=== PATIENT | female | born 1990 | race Caucasian/White ===

== ENCOUNTER 2017-01-13 16:14 | Outpatient (CLI) | payer MEDICAID ==
[2017-01-13 17:21] LABS: APPEARANCE,URINE SLIGHTLY-CLOUDY; BILIRUBIN,URINE NEGATIVE (NEGATIVE); GLUCOSE, URINE NEGATIVE (NEGATIVE); KETONES,URINE NEGATIVE (NEGATIVE); LEUKOCYTE ESTERASE,URINE MODERATE (NEGATIVE); NITRITE,URINE NEGATIVE (NEGATIVE); PROTEIN,URINE NEGATIVE (NEGATIVE); URINE SPECIFIC GRAVITY 1.013; UROBILINOGEN,URINE NEGATIVE mg/dL (<2.0)
[2017-01-13 17:21] LABS: ABSOLUTE BASOPHILS # (AUTO) 0.1 10^3/uL (0.0-0.2); ABSOLUTE EOSINOPHILS # (AUTO) 0.1 10^3/uL (0.0-0.6); ABSOLUTE LYMPHOCYTES (AUTO) 1.8 10^3/uL (0.5-4.7); ABSOLUTE MONOCYTES (AUTO) 0.8 10^3/uL (0.1-1.4); BASOPHILS % (AUTO) 0.8 % (0-2); EOSINOPHILS % (AUTO) 0.8 % (0-6); HEMATOCRIT 33.3 % (36.0-47.0); HEMOGLOBIN 11.4 g/dL (12.0-15.5); HGB HCT DIFFERENCE 0.9; LYMPHOCYTES % (AUTO) 16.5 % (13-45); MEAN CORPUSCULAR HEMOGLOBIN 30.2 pg (27.0-33.4); MEAN CORPUSCULAR HGB CONC 34.3 g/dL (32.0-36.0); MEAN CORPUSCULAR VOLUME 88 fl (80-97); MONOCYTES % (AUTO) 7.6 % (3-13); RED BLOOD COUNT 3.79 10^6/uL (3.72-5.28); RED CELL DISTRIBUTION WIDTH 12.9 % (11.5-14.0); SEGMENTED NEUTROPHILS % (AUTO) 74.3 % (42-78); WHITE BLOOD COUNT 10.8 10^3/uL (4.0-10.5)
[2017-01-13 17:38] LABS: URINE BARBITURATES SCREEN NEGATIVE; URINE METHADONE SCREEN NEGATIVE; URINE OPIATES LOW NEGATIVE; URINE PHENCYCLIDINE SCREEN NEGATIVE
[2017-01-13 17:40] LABS: ALANINE AMINOTRANSFERASE 19 U/L (9-52); ALBUMIN 3.9 g/dL (3.5-5.0); ALKALINE PHOSPHATASE 188 U/L (38-126); ANION GAP 12 (5-19); ASPARTATE AMINO TRANSFERASE 17 U/L (14-36); BILIRUBIN,TOTAL 0.4 mg/dL (0.2-1.3); BLOOD UREA NITROGEN 9 mg/dL (7-20); CALCIUM 9.8 mg/dL (8.4-10.2); CARBON DIOXIDE 19 mmol/L (22-30); CHLORIDE 106 mmol/L (98-107); CREATININE RESULT 0.51 mg/dL (0.52-1.25); GLUCOSE 75 mg/dL (75-110); LDH 409 U/L (313-618); POTASSIUM 4.1 mmol/L (3.6-5.0); SODIUM 136.5 mmol/L (137-145); TOTAL PROTEIN 6.9 g/dL (6.3-8.2); URIC ACID 3.8 mg/dL (2.5-6.2)
--- NOTE | 2017-01-13 18:01 | L&D Flow Sheet ---
LD Flowsheet Datetime Report Generated by CPN: 01/13/2017 18:00 Datetime: 01/13/2017 17:52 Comments: Monitors removed from abdomen, pt up to change clothes for D/C home with f/u at next appointment. (Nayely Alston, RNC) Datetime: 01/13/2017 17:40 NBP Sys/Holli/Mean (mmHg): 130 (QS system process) : 80 (QS system process) : 99 (QS system process) Pulse: 76 (QS system process) LaborFlag: Labor (QS system process) Datetime: 01/13/2017 17:30 Monitor Mode: External; Palpation (Nayely Gamaliel, RNC) Frequency (min): 3-5 (Nayely Gamaliel, RNC) Quality: Mild (Nayely Gamaliel, RNC) Duration (sec): 50-80 (Nayely Gamaliel, RNC) Duration Criteria: Less than Two 120 Second Contractions (Nayely Gamaliel, RNC) Pattern: Normal: <= 5 Contractions in 10 Minutes (Nayely Gamaliel, RNC) Resting Tone (Palpate): Relaxed (Nayely Gamaliel, RNC) Monitor Mode: External US (Nayely Gamaliel, RNC) FHR Baseline Rate : 135 (Nayely Gamaliel, RNC) Variability: Moderate 6-25 bpm (Nayely Gamaliel, RNC) Accelerations: 15X15 (Nayely Gamaliel, RNC) Decelerations: None (Nayely Gamaliel, RNC) Datetime: 01/13/2017 17:25 NBP Sys/Holli/Mean (mmHg): 139 (QS system process) : 80 (QS system process) : 101 (QS system process) Pulse: 82 (QS system process) LaborFlag: Labor (QS system process) Datetime: 01/13/2017 17:10 NBP Sys/Holli/Mean (mmHg): 130 (QS system process) : 76 (QS system process) : 98 (QS system process) Pulse: 86 (QS system process) LaborFlag: Labor (QS system process) Datetime: 01/13/2017 16:55 NBP Sys/Holli/Mean (mmHg): 129 (QS system process) : 69 (QS system process) : 92 (QS system process) Pulse: 77 (QS system process) LaborFlag: Labor (QS system process) Datetime: 01/13/2017 16:50 Level of Consciousness: Fully Conscious (Jeffry Coombs, RN) DTR's/Clonus: DTRs 2+; No Clonus (Jeffry Malvin, RN) Headache: Denies (Jeffry Coombs, RN) Breath Sounds, Left: Clear and Equal (Jeffry Coombs, RN) Breath Sounds, Right: Clear and Equal (Jeffry Coombs, RN) Nausea/Vomiting: Denies (Jeffry Coombs, RN) RUQ Epigastric Pain: Denies (Jeffry Coombs, RN) Datetime: 01/13/2017 16:40 NBP Sys/Holli/Mean (mmHg): 128 (QS system process) : 75 (QS system process) : 96 (QS system process) Pulse: 91 (QS system process) LaborFlag: Labor (QS system process) Datetime: 01/13/2017 16:36 Stage of : Labor (Rita Camp, VINH)
== END 2017-01-13 18:00 | disposition home or self-care (01) ==
LOC: LC 16:14
PROVIDERS: ATTEND Obstetrics & Gynecology
PROC: 4A1HXCZ Monitoring of Products of Conception, Cardiac Rate, External Approach (ICD-10-PCS; principal; 2017-01-13)
DX: O16.3 Unspecified maternal hypertension, third trimester (principal); Z3A.38 38 weeks gestation of pregnancy
CPT/HCPCS: 36415; 59025; 80053; 80307; 81001; 83615; 84550; 85025

== ENCOUNTER 2017-01-21 16:45 | Outpatient (CLI) | payer MEDICAID ==
[2017-01-21 17:35] LABS: ABSOLUTE BASOPHILS # (AUTO) 0.1 10^3/uL (0.0-0.2); ABSOLUTE EOSINOPHILS # (AUTO) 0.2 10^3/uL (0.0-0.6); ABSOLUTE LYMPHOCYTES (AUTO) 2.2 10^3/uL (0.5-4.7); ABSOLUTE MONOCYTES (AUTO) 0.7 10^3/uL (0.1-1.4); ABSOLUTE NEUT (AUTO) 7.7 10^3/uL (1.7-8.2); BASOPHILS % (AUTO) 0.5 % (0-2); EOSINOPHILS % (AUTO) 1.5 % (0-6); HEMATOCRIT 32.9 % (36.0-47.0); HEMOGLOBIN 11.3 g/dL (12.0-15.5); LYMPHOCYTES % (AUTO) 20.1 % (13-45); MEAN CORPUSCULAR HGB CONC 34.2 g/dL (32.0-36.0); MEAN CORPUSCULAR VOLUME 88 fl (80-97); MONOCYTES % (AUTO) 6.4 % (3-13); RED BLOOD COUNT 3.76 10^6/uL (3.72-5.28); RED CELL DISTRIBUTION WIDTH 12.9 % (11.5-14.0); SEGMENTED NEUTROPHILS % (AUTO) 71.5 % (42-78); WHITE BLOOD COUNT 10.8 10^3/uL (4.0-10.5)
--- NOTE | 2017-01-21 17:39 | Non Stress Test Report ---
Non Stress Test Datetime Report Generated by CPN: 01/21/2017 17:39 DEMOGRAPHIC EGA NST: 40.0 EGA NST: 38.6 INDICATION Indication for Study: Ordered by Provider Indication for Study: Other Indication for Study (NST) Other: sent for preeclampsia evaluation from office MONITORING Monitor Explained: Monitor Explained; Test Explained; Patient Verbalized Understanding Monitor Explained: Monitor Explained; Test Explained; Patient Verbalized Understanding Time on Monitor: 01/21/2017 16:58 Time on Monitor: 01/13/2017 17:30 Time off Monitor: 01/21/2017 17:37 Time off Monitor: 01/13/2017 17:50 NST Duration: 39 NST Duration: 20 NST INTERVENTIONS NST Interventions: PO Hydration; For Biophysical Profile NST Interventions: PO Hydration; Meal Given Physician Notified NST: CHiro Cummins CNM BABY A: [id number] BABY A Movement : Present Movement : Present Contraction Frequency : irreg Contraction Frequency : Irr FHR Baseline : 140 FHR Baseline : 135 Accelerations : 15X15 Accelerations : 15X15 Decelerations : None Decelerations : None Variability : Moderate 6-25bpm Variability : Moderate 6-25bpm NST Review: Meets Criteria for Reactive NST NST Review: Meets Criteria for Reactive NST NST Review and Verified By : Rita Whitehead C NST Review and Verified By : Rashida Alston RNC NST Results: Reactive NST Results: Reactive NST REPORT Report Trigger: Send Report
[2017-01-21 17:52] LABS: ALBUMIN 3.6 g/dL (3.5-5.0); ALKALINE PHOSPHATASE 189 U/L (38-126); ANION GAP 11 (5-19); ASPARTATE AMINO TRANSFERASE 26 U/L (14-36); BILIRUBIN,TOTAL 0.3 mg/dL (0.2-1.3); BLOOD UREA NITROGEN 9 mg/dL (7-20); CALCIUM 9.4 mg/dL (8.4-10.2); CARBON DIOXIDE 21 mmol/L (22-30); CHLORIDE 105 mmol/L (98-107); CREATININE RESULT 0.53 mg/dL (0.52-1.25); GLUCOSE 91 mg/dL (75-110); LDH 393 U/L (313-618); POTASSIUM 4.1 mmol/L (3.6-5.0); SODIUM 136.7 mmol/L (137-145); TOTAL PROTEIN 6.6 g/dL (6.3-8.2); URIC ACID 3.6 mg/dL (2.5-6.2)
[2017-01-21 17:53] LABS: ALANINE AMINOTRANSFERASE 22 U/L (9-52)
--- NOTE | 2017-01-21 18:00 | L&D Flow Sheet ---
LD Flowsheet Datetime Report Generated by CPN: 01/21/2017 18:00 Datetime: 01/21/2017 17:59 NBP Sys/Holli/Mean (mmHg): 106 (QS system process) : 64 (QS system process) : 80 (QS system process) Pulse: 80 (QS system process) LaborFlag: Labor (QS system process) Datetime: 01/21/2017 17:44 NBP Sys/Holli/Mean (mmHg): 110 (QS system process) : 68 (QS system process) : 83 (QS system process) Pulse: 75 (QS system process) Communication Comments: C. Cummins CNM on unit, reviewed strip. Orders to take monitors off while we wait for lab results (Juanis Rodriguez RN) LaborFlag: Labor (QS system process) Datetime: 01/21/2017 17:29 NBP Sys/Holli/Mean (mmHg): 109 (QS system process) : 69 (QS system process) : 83 (QS system process) Pulse: 89 (QS system process) LaborFlag: Labor (QS system process) Datetime: 01/21/2017 17:25 Procedures: Labs Drawn (Juanis Rodriguez RN) Datetime: 01/21/2017 17:14 NBP Sys/Holli/Mean (mmHg): 109 (QS system process) : 70 (QS system process) : 85 (QS system process) Pulse: 89 (QS system process) I/O Interventions: Popsicle (Juanis Rodriguez RN) LaborFlag: Labor (QS system process) Datetime: 01/21/2017 17:05 Pain Scale: 0 (Juanis Rodriguez RN) Pain Presence: None/Denies (Juanis Rodriguez RN) Pain Type: N/A (Juanis Rodriguez RN) Vaginal Bleeding: None (Juanis Rodriguez RN) Level of Consciousness: Fully Conscious (Juanis Rodriguez RN) DTR's/Clonus: DTRs 2+; No Clonus (Juanis Rodriguez, RN) Headache: Generalized (Juanis Rodriguez RN) Breath Sounds, Left: Clear and Equal (Juanis Rodriguez RN) Breath Sounds, Right: Clear and Equal (Juanis Rodriguez RN) Nausea/Vomiting: Denies (Juanis Rodriguez RN) RUQ Epigastric Pain: Denies (Juanis Rodriguez, RN) Instructional Method: Verbal; Patient Instructed; Family/Support Person Instructed; Verbalized Understanding (Juanis Rodriguez RN) Plan of Care: Plan of Care Discussed (Juanis Rodriguez RN) Unit Routine: [place] to Room; Call [place]; Bed; Handwashing; Monitoring; Bathroom Privileges (Juanis Rodriguez RN) LaborFlag: Labor (QS system process) Datetime: 01/21/2017 16:59 NBP Sys/Holli/Mean (mmHg): 107 (QS system process) : 59 (QS system process) : 79 (QS system process) Pulse: 91 (QS system process) LaborFlag: Labor (QS system process) Datetime: 01/21/2017 16:56 Patient Position/Activity: Left Lateral (Juanis Rodriguez RN) I/O Interventions: Clear Liquids Given (Juanis Rodriguez RN)
[2017-01-21 18:22] LABS: URINE BARBITURATES SCREEN NEGATIVE; URINE METHADONE SCREEN NEGATIVE; URINE OPIATES LOW NEGATIVE; URINE PHENCYCLIDINE SCREEN NEGATIVE
[2017-01-21 18:24] LABS: APPEARANCE,URINE SLIGHTLY-CLOUDY; BILIRUBIN,URINE NEGATIVE (NEGATIVE); GLUCOSE, URINE NEGATIVE (NEGATIVE); KETONES,URINE NEGATIVE (NEGATIVE); LEUKOCYTE ESTERASE,URINE TRACE (NEGATIVE); NITRITE,URINE NEGATIVE (NEGATIVE); PROTEIN,URINE 30 mg/dL (NEGATIVE); URINE SPECIFIC GRAVITY 1.019; UROBILINOGEN,URINE NEGATIVE mg/dL (<2.0)
== END 2017-01-21 19:23 | disposition home or self-care (01) ==
LOC: LC 16:45
PROVIDERS: ATTEND Obstetrics & Gynecology
PROC: 4A1HXCZ Monitoring of Products of Conception, Cardiac Rate, External Approach (ICD-10-PCS; principal; 2017-01-21)
DX: O47.1 False labor at or after 37 completed weeks of gestation (principal); R51 Headache; Z3A.40 40 weeks gestation of pregnancy
CPT/HCPCS: 36415; 59025; 80053; 80307; 81001; 83615; 84550; 85025

== ENCOUNTER 2017-01-22 09:43 | Inpatient (IN) | payer MEDICAID ==
--- NOTE | 2017-01-22 10:00 | L&D Flow Sheet ---
LD Flowsheet Datetime Report Generated by CPN: 01/22/2017 10:00 Datetime: 01/22/2017 09:56 Pain Scale: 3 (Princess Bustamante RN) Vaginal Bleeding: Normal Show (Princess Bustamante RN) Level of Consciousness: Fully Conscious (Princess Bustamante RN) DTR's/Clonus: DTRs 2+; No Clonus (Princess Bustamante RN) Headache: Denies (Princess Bustamante RN) Breath Sounds, Left: Clear and Equal (Princess Bustamante RN) Breath Sounds, Right: Clear and Equal (Princess Bustamante RN) Nausea/Vomiting: Denies (Princess Bustamante RN) RUQ Epigastric Pain: Denies (Princess Bustamante RN) LaborFlag: Labor (QS system process)
[2017-01-22 10:31] LABS: APPEARANCE,URINE CLOUDY; BILIRUBIN,URINE NEGATIVE (NEGATIVE); GLUCOSE, URINE NEGATIVE (NEGATIVE); KETONES,URINE NEGATIVE (NEGATIVE); LEUKOCYTE ESTERASE,URINE LARGE (NEGATIVE); NITRITE,URINE NEGATIVE (NEGATIVE); PROTEIN,URINE 30 mg/dL (NEGATIVE); URINE SPECIFIC GRAVITY 1.015; UROBILINOGEN,URINE NEGATIVE mg/dL (<2.0)
[2017-01-22 10:52] LABS: URINE BARBITURATES SCREEN NEGATIVE; URINE METHADONE SCREEN NEGATIVE; URINE OPIATES LOW NEGATIVE; URINE PHENCYCLIDINE SCREEN NEGATIVE
--- NOTE | 2017-01-22 12:00 | L&D Flow Sheet ---
LD Flowsheet Datetime Report Generated by CPN: 01/22/2017 12:00 Datetime: 01/22/2017 11:56 Dilatation (cm): 1.5 (Princess Bustamante, RN) Effacement (%): 50 (Princess Robby, RN) Station: -2 (Princess Robby, RN) Exam by: B Baipito RN (Princess Bustamante, RN) I/O Interventions: Up to BR (Princess Robby, RN) Datetime: 01/22/2017 11:30 NBP Sys/Holli/Mean (mmHg): 123 (QS system process) : 90 (QS system process) : 103 (QS system process) Pulse: 93 (QS system process) LaborFlag: Labor (QS system process) Datetime: 01/22/2017 11:01 NBP Sys/Holli/Mean (mmHg): 128 (QS system process) : 80 (QS system process) : 100 (QS system process) Pulse: 88 (QS system process) LaborFlag: Labor (QS system process) Datetime: 01/22/2017 11:00 Monitor Mode: External; Palpation (Princess Bustamante RN) Frequency (min): 2-7 (Princess Bustamante RN) Quality: Moderate (Princess Bustamante RN) Duration (sec): 60-100 (Princess Bustamante RN) Duration Criteria: Less than Two 120 Second Contractions (Princess Bustamante RN) Pattern: Normal: <= 5 Contractions in 10 Minutes (Princess Bustamante RN) Resting Tone (Palpate): Relaxed (Princess Bustamante RN) Monitor Mode: External US (Princess Bustamante RN) FHR Baseline Rate : 145 (Princess Bustamante RN) Variability: Minimal - Undetectable to <=5 bpm (Princess Bustamante RN) Accelerations: None (Princess Bustamante RN) Decelerations: None (Princess Bustamante RN) Datetime: 01/22/2017 10:49 Instructional Method: Verbal; Patient Instructed; Verbalized Understanding (Princess Bsutamante RN) Plan of Care: Plan of Care Discussed (Princess Bustamante RN) Datetime: 01/22/2017 10:46 Communication: Call/Page Placed to Provider (Princess Bustamante RN) Provider Notified (Name): Dr Hernandez (Princess Bustamante RN) Communication Comments: notifed of nonreactive NST, orders received for BPP. (Princess Bustamante RN) Datetime: 01/22/2017 10:30 NBP Sys/Holli/Mean (mmHg): 127 (QS system process) : 89 (QS system process) : 102 (QS system process) Pulse: 90 (QS system process) Monitor Mode: External; Palpation (Princess Bustamante, RN) Frequency (min): 5 (Princess Bustamante, RN) Quality: Moderate (Princess Bustamante, RN) Duration (sec): 60-70 (Princess Bustamante, RN) Duration Criteria: Less than Two 120 Second Contractions (Princess Bustamante, RN) Pattern: Normal: <= 5 Contractions in 10 Minutes (Princess Bustamante, RN) Resting Tone (Palpate): Relaxed (Princess Bustamante, RN) Monitor Mode: External US (Princess Bustamante, RN) FHR Baseline Rate : 145 (Princess Bustamante, RN) Variability: Minimal - Undetectable to <=5 bpm (Princess Baipito, RN) Accelerations: None (Princess Baipito, RN) Decelerations: None (Princess Bustamante, RN) LaborFlag: Labor (QS system process) Datetime: 01/22/2017 10:21 Patient Position/Activity: Left Lateral (Princess Baidy, RN) Datetime: 01/22/2017 10:10 Communication Comments: Dr Hernandez notified of pt complaint of ctx and SVE of 1/50/-2. Orders to obtain reactive NST and d/c home. (Princess Bustamante, LOIS) Datetime: 01/22/2017 10:09 I/O Interventions: Up to BR (Princess Bustamante RN) Strip Reviewed by: Dr Hernandez (Princess Bustamante, LOIS) Communication: RN Reviewed Strip (Princess Bustamante, LOIS) Datetime: 01/22/2017 10:08 Dilatation (cm): 1.0 (Princess Bustamante RN) Effacement (%): 50 (Princess Bustamante RN) Station: -2 (Princess Bustamante RN) Exam by: Marce Bustamante RN (Princess Bustamante RN) Cervix, Position: Posterior (Princess Bustamante RN) Datetime: 01/22/2017 10:00 NBP Sys/Holli/Mean (mmHg): 122 (QS system process) : 84 (QS system process) : 98 (QS system process) Pulse: 100 (QS system process) LaborFlag: Labor (QS system process)
--- NOTE | 2017-01-22 14:00 | L&D Flow Sheet ---
LD Flowsheet Datetime Report Generated by CPN: 01/22/2017 14:00 Datetime: 01/22/2017 13:54 NBP Sys/Holli/Mean (mmHg): 116 (QS system process) : 61 (QS system process) : 81 (QS system process) Pulse: 86 (QS system process) LaborFlag: Labor (QS system process) Datetime: 01/22/2017 13:38 Patient Care Comments: pt back from US, orders received to leave off monitor until results from BPP are resulted. (Princess Baidy, RN) Datetime: 01/22/2017 12:52 Patient Care Comments: pt taken off monitor, transported to US via wheelchair. (Princess Bustamante RN) Datetime: 01/22/2017 12:30 NBP Sys/Holli/Mean (mmHg): 122 (QS system process) : 75 (QS system process) : 93 (QS system process) Pulse: 93 (QS system process) Monitor Mode: External; Palpation (Princess Bustamante RN) Frequency (min): 4-5 (Princess Bustamante RN) Quality: Mild/Moderate (Princess Bustamante RN) Duration (sec): 60-90 (Princess Bustamante RN) Duration Criteria: Less than Two 120 Second Contractions (Princess Bustamante RN) Pattern: Normal: <= 5 Contractions in 10 Minutes (Princess Bustamante RN) Resting Tone (Palpate): Relaxed (Princess Bustamante RN) Monitor Mode: External US (Princess Bustamante RN) FHR Baseline Rate : 145 (Princess Bustamante RN) Variability: Minimal - Undetectable to <=5 bpm (Princess Bustamante RN) Accelerations: None (Princess Bustamante RN) Decelerations: None (Princess Bustamante RN) LaborFlag: Labor (QS system process) Datetime: 01/22/2017 12:00 Monitor Mode: External; Palpation (Princess Bustaamnte RN) Frequency (min): 4-5 (Princess Bustamante RN) Quality: Mild/Moderate (Princess Bustamante RN) Duration (sec): 60-90 (Princess Bustamante RN) Duration Criteria: Less than Two 120 Second Contractions (Princess Bustamante RN) Pattern: Normal: <= 5 Contractions in 10 Minutes (Princess Bustamante RN) Resting Tone (Palpate): Relaxed (Princess Bustamante RN) Monitor Mode: External US (Princess Bustamante RN) FHR Baseline Rate : 145 (Princess Bustamante RN) Variability: Minimal - Undetectable to <=5 bpm (Princess Bustamante RN) Accelerations: None (Princess Bustamante RN) Decelerations: None (Princess Bustamante RN)
[2017-01-22] MEDS ORDERED: OXYTOCIN/NORMAL SALINE 1,000 ML IV PRN ×3 (14:06→20:47)
[2017-01-22] MEDS ORDERED: DINOPROSTONE 10 MG VAGINAL INSERT.SR PV ONE (14:06)
[2017-01-22] MEDS ORDERED: MAG HYDROX/AL HYDROX/SIMETH SUSP 30 ML UDCUP PO PRN (14:06)
[2017-01-22] MEDS ORDERED: RINGERS SOLUTION,LACTATED 1,000 ML IV PRN (14:06)
[2017-01-22] MEDS ORDERED: RINGERS SOLUTION,LACTATED 300 ML IV ONE (14:06)
[2017-01-22] MEDS ORDERED: ACETAMINOPHEN 325 MG TABLET PO PRN (14:06)
[2017-01-22] MEDS ORDERED: ZOLPIDEM TARTRATE 5 MG TABLET PO PRN ×2 (14:06→20:47)
[2017-01-22 14:51] LABS: ABSOLUTE BASOPHILS # (AUTO) 0.1 10^3/uL (0.0-0.2); ABSOLUTE EOSINOPHILS # (AUTO) 0.1 10^3/uL (0.0-0.6); ABSOLUTE LYMPHOCYTES (AUTO) 1.4 10^3/uL (0.5-4.7); ABSOLUTE MONOCYTES (AUTO) 1.1 10^3/uL (0.1-1.4); ABSOLUTE NEUT (AUTO) 14.2 10^3/uL (1.7-8.2); BASOPHILS % (AUTO) 0.3 % (0-2); EOSINOPHILS % (AUTO) 0.3 % (0-6); HEMATOCRIT 31.8 % (36.0-47.0); HEMOGLOBIN 10.8 g/dL (12.0-15.5); HGB HCT DIFFERENCE 0.6; LYMPHOCYTES % (AUTO) 8.4 % (13-45); MEAN CORPUSCULAR HEMOGLOBIN 29.6 pg (27.0-33.4); MEAN CORPUSCULAR HGB CONC 33.9 g/dL (32.0-36.0); MEAN CORPUSCULAR VOLUME 88 fl (80-97); MONOCYTES % (AUTO) 6.3 % (3-13); RED BLOOD COUNT 3.64 10^6/uL (3.72-5.28); RED CELL DISTRIBUTION WIDTH 12.9 % (11.5-14.0); SEGMENTED NEUTROPHILS % (AUTO) 84.7 % (42-78); WHITE BLOOD COUNT 16.7 10^3/uL (4.0-10.5)
[2017-01-22] MEDS ORDERED: OXYTOCIN/NORMAL SALINE 20 UNIT/1,000 ML RTUINJ ONE (15:29)
--- NOTE | 2017-01-22 16:00 | L&D Flow Sheet ---
LD Flowsheet Datetime Report Generated by CPN: 01/22/2017 16:00 Datetime: 01/22/2017 15:39 Monitor Interventions for UA: [place]mer Adjusted (Princess Baidy, RN) Monitor Interventions for FHR: Ultrasound Adjusted (Princess Baidy, RN) Datetime: 01/22/2017 15:37 Monitor Interventions for UA: [place]mer Adjusted (Princess Baidy, RN) Monitor Interventions for FHR: Ultrasound Adjusted (Princess Baidy, RN) Datetime: 01/22/2017 15:30 Pitocin (milliunit): Pitocin Started (milliunits) @ 2 (Princess Bustamante, RN) Datetime: 01/22/2017 15:29 Patient Care Comments: pt at bedside on birthing ball (Princess Bustamante, RN) Datetime: 01/22/2017 15:24 NBP Sys/Holli/Mean (mmHg): 133 (QS system process) : 72 (QS system process) : 93 (QS system process) Pulse: 93 (QS system process) I/O Interventions: Up to BR (Princess Bustamante RN) LaborFlag: Labor (QS system process) Datetime: 01/22/2017 15:23 Pain Scale: 4 (Princess Bustamante RN) Pain Presence: Intermittent (Princess Bustamante RN) Pain Type: Contraction (Princess Bustamante RN) Dilatation (cm): 2.0 (Princess Bustamante RN) Effacement (%): 50 (Princess Bustamante RN) Station: -2 (Princess Bustamante RN) Exam by: Marce Bustamante RN (Princess Bustamante RN) LaborFlag: Labor (QS system process) Datetime: 01/22/2017 15:19 IV/Blood Work: IV Infusing per Order; New IV Bag Hung (Princess Bustamante RN) Patient Care Comments: LR 125mL/hr (Princess Bustamante RN) Datetime: 01/22/2017 14:54 NBP Sys/Holli/Mean (mmHg): 118 (QS system process) : 63 (QS system process) : 85 (QS system process) Pulse: 93 (QS system process) LaborFlag: Labor (QS system process) Datetime: 01/22/2017 14:32 Communication Comments: Dr Hernandez notified of pt ctx pattern order received to start pitocin instead of cervadil. (Pricness Bustamante RN) Datetime: 01/22/2017 14:29 IV/Blood Work: IV Started; IV Bolus Started (Princess Bustamante RN) Patient Care Comments: 18g in left wrist, stat lock applied. (Princess Bustamante RN) Datetime: 01/22/2017 14:23 NBP Sys/Holli/Mean (mmHg): 126 (QS system process) : 75 (QS system process) : 93 (QS system process) Pulse: 78 (QS system process) LaborFlag: Labor (QS system process) Datetime: 01/22/2017 14:01 Communication Comments: Dr Hernandez notified of BPP results, orders received to let pt eat lunch and then start cervadil. (Princess Bustamante RN)
[2017-01-22] MEDS ORDERED: EPHEDRINE SULFATE INJ 50 MG/1 ML AMPULE IV PRN (16:15)
[2017-01-22] MEDS ORDERED: BUPIVACAINE HCL/NS/PF 100 ML EPI PRN (16:15)
[2017-01-22] MEDS ORDERED: FENTANYL/BUPIVACAINE/NS/PF 100 ML EPI PRN (16:15)
[2017-01-22] MEDS ORDERED: BUPIVACAINE HCL 0.25 % INJ/PF (2.5 MG/1 ML) 30 ML VIAL INFIL ONE (16:15)
[2017-01-22] MEDS ORDERED: BENZOIN/ALOE VERA/STORAX/TOLU TINCTURE 60 ML TP PRN (16:15)
[2017-01-22] MEDS ORDERED: EPHEDRINE SULFATE INJ 50 MG/1 ML AMPULE ONE (16:45)
[2017-01-22] MEDS ORDERED: BUPIVACAINE HCL 0.25 % INJ/PF (2.5 MG/1 ML) 30 ML VIAL ONE (16:45)
[2017-01-22] MEDS ORDERED: FENTANYL/BUPIVACAINE/NS/PF 200 MCG/100 ML RTUINJ EPI ONE (16:45)
[2017-01-22] MEDS ORDERED: FENTANYL CITRATE INJ/PF 100 MCG/2 ML AMPUL ONE (16:45)
[2017-01-22] MEDS ORDERED: PHENYLEPHRINE HCL INJ/PF 10 MG/1 ML SDV ONE (16:45)
--- NOTE | 2017-01-22 18:00 | L&D Flow Sheet ---
LD Flowsheet Datetime Report Generated by CPN: 01/22/2017 18:00 Datetime: 01/22/2017 17:59 NBP Sys/Holli/Mean (mmHg): 116 (QS system process) : 55 (QS system process) : 79 (QS system process) Pulse: 94 (QS system process) LaborFlag: Labor (QS system process) Datetime: 01/22/2017 17:49 Monitor Interventions for UA: Bad Axe Adjusted (Princess Baidy, RN) Datetime: 01/22/2017 17:48 Monitor Interventions for UA: Bad Axe Adjusted (Princess Baidy, RN) Datetime: 01/22/2017 17:46 Patient Position/Activity: Left Lateral; Peanut Ball (Princess Baidy, RN) Datetime: 01/22/2017 17:45 Monitor Mode: External; Palpation (Princess Robby, RN) Frequency (min): 2-2.5 (Princess Bustamante, RN) Quality: Moderate to Strong (Princess Bustamante, RN) Duration (sec): 70-90 (Princess Baidy, RN) Duration Criteria: Less than Two 120 Second Contractions (Princess Baidy, RN) Pattern: Normal: <= 5 Contractions in 10 Minutes (Princess Baidy, RN) Resting Tone (Palpate): Relaxed (Princess Baidy, RN) Monitor Mode: External US (Princess Baipito, RN) FHR Baseline Rate : 145 (Princess Baidy, RN) Variability: Moderate 6-25 bpm (Princess Baidy, RN) Accelerations: None (Princess Baidy, RN) Decelerations: None (Princess Baidy, RN) Pitocin (milliunit): Pitocin Decreased to (milliunits) @ 4 (Princess Baidy, RN) Datetime: 01/22/2017 17:43 Respirations: 18 (Princess Baidy, RN) Temperature (F): 98.4 (Princess Baidy, RN) Temperature (C): 36.9 (QS system process) LaborFlag: Labor (QS system process) Datetime: 01/22/2017 17:42 NBP Sys/Holli/Mean (mmHg): 124 (QS system process) : 59 (QS system process) : 85 (QS system process) Pulse: 86 (QS system process) Communication Comments: Dr Hernandez notified of small amt of blood noted and SVE of /-2 with buldging bag. (Princess Bustamante RN) LaborFlag: Labor (QS system process) Datetime: 01/22/2017 17:41 Patient Position/Activity: Left Lateral (Princess Bustamante RN) Datetime: 01/22/2017 17:36 NBP Sys/Holli/Mean (mmHg): 116 (QS system process) : 58 (QS system process) : 81 (QS system process) Pulse: 81 (QS system process) Dilatation (cm): 5.0 (Princess Bustamante RN) Effacement (%): 75 (Princess Bustamante RN) Station: -2 (Princess Bustamante RN) Exam by: Marce Bustamante RN (Princess Bustamante RN) Membrane Status: Bulging (Princess Bustamante RN) LaborFlag: Labor (QS system process) Datetime: 01/22/2017 17:35 NBP Sys/Holli/Mean (mmHg): 117 (QS system process) : 74 (QS system process) : 85 (QS system process) Pulse: 83 (QS system process) LaborFlag: Labor (QS system process) Datetime: 01/22/2017 17:34 NBP Sys/Holli/Mean (mmHg): 118 (QS system process) : 73 (QS system process) : 91 (QS system process) Pulse: 86 (QS system process) LaborFlag: Labor (QS system process) Datetime: 01/22/2017 17:33 NBP Sys/Holli/Mean (mmHg): 113 (QS system process) : 64 (QS system process) : 82 (QS system process) Pulse: 78 (QS system process) Contraction Comments: TOCO referenced. (Princess Bustamante RN) I/O Interventions: Lewis Cath Inserted (Princess Bustamante RN) LaborFlag: Labor (QS system process) Datetime: 01/22/2017 17:31 NBP Sys/Holli/Mean (mmHg): 113 (QS system process) : 68 (QS system process) : 84 (QS system process) Pulse: 91 (QS system process) LaborFlag: Labor (QS system process) Datetime: 01/22/2017 17:30 NBP Sys/Holli/Mean (mmHg): 114 (QS system process) NBP Sys/Holli/Mean (mmHg): 108 (QS system process) : 58 (QS system process) : 57 (QS system process) : 81 (QS system process) : 78 (QS system process) Pulse: 89 (QS system process) Pulse: 82 (QS system process) Monitor Mode: External; Palpation (Margie Junior RN) Frequency (min): 2-3 (Margie Junior RN) Quality: Moderate to Strong (Margie Junior RN) Duration (sec): 60-90 (Margie Junior RN) Resting Tone (Palpate): Relaxed (Margie uJnior RN) Contraction Comments: TOCO referenced. (Princess Bustamante RN) Monitor Mode: External US (Margie Junior RN) Variability: Minimal - Undetectable to <=5 bpm (Margie Junior RN) Comments: Poor tracing due to maternal position during epidural. (Margie Junior RN) Epidural Procedure Other: Pump Started (Margie Junior RN) LaborFlag: Labor (QS system process) Datetime: 01/22/2017 17:28 NBP Sys/Holli/Mean (mmHg): 104 (QS system process) : 60 (QS system process) : 77 (QS system process) Pulse: 92 (QS system process) LaborFlag: Labor (QS system process) Datetime: 01/22/2017 17:27 NBP Sys/Holli/Mean (mmHg): 132 (QS system process) : 72 (QS system process) : 95 (QS system process) Pulse: 98 (QS system process) Pulse: 99 (QS system process) SpO2 (%): 91 (QS system process) Patient Position/Activity: Left Tilt; Low Fowlers (Princess Bustamante RN) LaborFlag: Labor (QS system process) Datetime: 01/22/2017 17:26 NBP Sys/Holli/Mean (mmHg): 122 (QS system process) : 73 (QS system process) : 92 (QS system process) Pulse: 86 (QS system process) Epidural Procedure: Loading Dose (Princess Bustamante RN) LaborFlag: Labor (QS system process) Datetime: 01/22/2017 17:25 NBP Sys/Holli/Mean (mmHg): 147 (QS system process) : 64 (QS system process) : 92 (QS system process) Pulse: 100 (QS system process) LaborFlag: Labor (QS system process) Datetime: 01/22/2017 17:24 Pulse: 108 (QS system process) SpO2 (%): 99 (QS system process) LaborFlag: Labor (QS system process) Datetime: 01/22/2017 17:23 Epidural Procedure: Cath Placed (Princess Baidy, RN) Epidural Procedure: Test Dose (Princess Baidy, RN) Datetime: 01/22/2017 17:19 Pulse: 91 (QS system process) SpO2 (%): 97 (QS system process) LaborFlag: Labor (QS system process) Datetime: 01/22/2017 17:17 Anesthesia Comments: Dr. Lewis at bedside for epidural. (Princess Bustamante, RN) Datetime: 01/22/2017 17:15 Monitor Mode: External; Palpation (Margie Junior, RN) Frequency (min): 2-3 (Margie Junior, RN) Quality: Moderate to Strong (Margie Junior, RN) Duration (sec): 60-90 (Margie Junior, RN) Resting Tone (Palpate): Relaxed (Margie Junior, RN) Monitor Mode: External US (Margie Junior, RN) FHR Baseline Rate : 145 (Margie Junior, RN) Variability: Minimal - Undetectable to <=5 bpm (Margie Junior, RN) Accelerations: 10X10 (Margie Junior, RN) Decelerations: None (Margie Junior, RN) Datetime: 01/22/2017 17:14 Procedure Verify: Correct Patient Identity; Correct Side and Site are Marked; Accurate Procedure Consent Form; Agreement on Procedure to be Done; Correct Patient Position (Princess Bustamante RN) Anesthesia Plans: Epidural (Princess Bustamante, RN) Datetime: 01/22/2017 17:00 Monitor Mode: External; Palpation (Margie Junior RN) Frequency (min): 2-3 (Margie Junior RN) Quality: Moderate to Strong (Margie Junior RN) Duration (sec): 60-90 (Margie Junior RN) Resting Tone (Palpate): Relaxed (Margie Junior RN) Monitor Mode: External US (Margie Junior RN) FHR Baseline Rate : 145 (Margie Junior RN) Variability: Minimal - Undetectable to <=5 bpm (Margie Junior, RN) Accelerations: 10X10 (Margie Junior, RN) Decelerations: None (Margie Junior, RN) Datetime: 01/22/2017 16:55 NBP Sys/Holli/Mean (mmHg): 129 (QS system process) : 68 (QS system process) : 92 (QS system process) Pulse: 95 (QS system process) LaborFlag: Labor (QS system process) Datetime: 01/22/2017 16:45 Monitor Mode: External; Palpation (Princess Bustamante, RN) Frequency (min): 2-3 (Princess Bustamante, RN) Quality: Moderate to Strong (Princess Bustamante, RN) Duration (sec): 70-90 (Princess Bustamante, RN) Duration Criteria: Less than Two 120 Second Contractions (Princess Bustamante, RN) Pattern: Normal: <= 5 Contractions in 10 Minutes (Princess Bustamante, RN) Resting Tone (Palpate): Relaxed (Princess Bustamante, RN) Monitor Mode: External US (Princess Bustamante, RN) FHR Baseline Rate : 145 (Princess Bustamante, RN) Variability: Moderate 6-25 bpm (Princess Baidy, RN) Accelerations: None (Princess Baidy, RN) Decelerations: None (Princess Baipito, RN) Datetime: 01/22/2017 16:37 Pain Scale: 5 (Princess Bustamante RN) Pain Presence: Intermittent (Princess Bustamante RN) Pain Type: Contraction (Princess Bustamante RN) IV/Blood Work: IV Bolus Started (Princess Bustamante RN) Anesthesia Comments: pt requesting epidural (Princess Bustamante RN) LaborFlag: Labor (QS system process) Datetime: 01/22/2017 16:30 Monitor Mode: External; Palpation (Princess Bustamante RN) Frequency (min): 2-3 (Princess Bustamante RN) Quality: Moderate to Strong (Princess Bustamante RN) Duration (sec): 60-90 (Princess Bustamante RN) Duration Criteria: Less than Two 120 Second Contractions (Princess Bustamante RN) Pattern: Normal: <= 5 Contractions in 10 Minutes (Princess Bustamante RN) Resting Tone (Palpate): Relaxed (Princess Bustamante RN) Monitor Mode: External US (Princess Bustamante RN) FHR Baseline Rate : 145 (Princess Bustamante RN) Variability: Moderate 6-25 bpm (Princess Bustamante RN) Accelerations: None (Princess Bustamante RN) Decelerations: None (Princess Bustamante RN) Pitocin (milliunit): Pitocin Increased to (milliunits) @ 6 (Princess Bustamante RN) Datetime: 01/22/2017 16:29 I/O Interventions: Up to BR (Princess Robby, RN) Datetime: 01/22/2017 16:24 NBP Sys/Holli/Mean (mmHg): 121 (QS system process) : 69 (QS system process) : 87 (QS system process) Pulse: 100 (QS system process) LaborFlag: Labor (QS system process) Datetime: 01/22/2017 16:15 Monitor Mode: External; Palpation (Princess Bustamante, RN) Frequency (min): 3-3.5 (Princess Bustamante RN) Quality: Moderate (Princess Bustamante RN) Duration (sec): 60-80 (Princess Bustamante RN) Duration Criteria: Less than Two 120 Second Contractions (Prinecss Bustamante RN) Pattern: Normal: <= 5 Contractions in 10 Minutes (Princess Bustamante RN) Resting Tone (Palpate): Relaxed (Princess Bustamante RN) Monitor Mode: External US (Princess Bustamante, LOIS) FHR Baseline Rate : 145 (Princess Bustamante, RN) Variability: Moderate 6-25 bpm (Princess Bustamante, RN) Accelerations: 10X10 (Princess Bustamante, RN) Decelerations: None (Princess Bustamante, RN) Datetime: 01/22/2017 16:00 Monitor Mode: External; Palpation (Margie Junior RN) Frequency (min): 3-5 (Margie Junior RN) Quality: Mild/Moderate (Margie Junior RN) Duration (sec): 60-100 (Margie Junior RN) Resting Tone (Palpate): Relaxed (Margie Junior RN) Monitor Mode: External US (Princess Bustamante RN) FHR Baseline Rate : 145 (Princess Bustamante, RN) Variability: Moderate 6-25 bpm (Princess Bustamante, RN) Accelerations: None (Princess Bustamante, RN) Decelerations: None (Princess Bustamante RN) Pitocin (milliunit): Pitocin Increased to (milliunits) @ 4 (Princess Bustamante RN)
[2017-01-22] MEDS ORDERED: ACETAMINOPHEN 325 MG TABLET ONE (18:26)
[2017-01-22] MEDS ORDERED: MISOPROSTOL 0.2 MG TABLET ONE (18:36)
[2017-01-22] MEDS ORDERED: LIDOCAINE 1% INJ-PF (10 MG/ML) 30 ML SDV ONE (18:36)
--- NOTE | 2017-01-22 20:00 | L&D Flow Sheet ---
LD Flowsheet Datetime Report Generated by CPN: 01/22/2017 20:00 Datetime: 01/22/2017 19:45 Communication: Provider at Bedside (Dolores Ring, RN) Datetime: 01/22/2017 19:44 Pushing: Urge to Push; Involuntary Pushing (Dolores Ring, RN) Pushing Position: Pushing with Contractions; Pushing Lithotomy (Dolores Ring, RN) Pushing Progress: Presenting Part Visible; with Pushing (Dolores Ring, RN) Datetime: 01/22/2017 19:35 Pushing: Coached on Pushing; Urge to Push; Involuntary Pushing (Dolores Ring, RN) Pushing Position: Pushing with Contractions; Pushing Lithotomy (Dolores Ring, RN) Datetime: 01/22/2017 19:32 Actions for Decelerations: Oxygen Applied (Dolores Ring, RN) Datetime: 01/22/2017 19:29 Actions for Decelerations: IV Bolus (Dolores Ring, RN) Patient Care Comments: Cold washcloth applied to neck (Dolores Ring, RN) Datetime: 01/22/2017 19:27 Patient Position/Activity: Left Tilt (Dolores Ring, RN) Datetime: 01/22/2017 19:24 Pushing: Urge to Push (Princess Baidy, RN) Pushing Position: Pushing with Contractions; Pushing Lithotomy (Princess Baidy, RN) Datetime: 01/22/2017 19:23 Provider Reviewed Strip: Yes (Princess Baidy, RN) Notification Reason: Status Update (Princess Bustamante RN) Communication Comments: Dr. Hernandez on unit (Princess Bustamante, LOIS) Datetime: 01/22/2017 19:20 I/O Interventions: Lewis Discontinued (Dolores Sinha, RN) Datetime: 01/22/2017 19:10 Respirations: 20 (Princess Bustamante RN) Temperature (F): 99.4 (Princess Bustamante RN) Temperature (C): 37.4 (QS system process) Communication Comments: Handoff report given to Joaquin Wright RN (Princess Bustamante RN) LaborFlag: Labor (QS system process) Datetime: 01/22/2017 19:02 Pain Scale: 2 (Princess Bustamante RN) Pain Assessment Comments: headache, pt feeling a lot of pressure (Princess Bustamante RN) LaborFlag: Labor (QS system process) Datetime: 01/22/2017 19:00 Monitor Mode: External; Palpation (Princess Bustamante RN) Monitor Mode: External; Palpation (Margie Junior RN) Frequency (min): 1.5-2.5 (Princess Bustamante RN) Frequency (min): 1.5-2.5 (Margie Junior RN) Quality: Moderate to Strong (Princess Bustamante RN) Quality: Moderate to Strong (Margie Junior RN) Duration (sec): 70-120 (Princess Bustamante RN) Duration (sec): 60-90 (Margie Junior RN) Duration Criteria: More than Two 120 Second or Greater Contractions (Princess Bustamante RN) Pattern: Normal: <= 5 Contractions in 10 Minutes (Princess Bustamante RN) Resting Tone (Palpate): Relaxed (Princess Bustamante RN) Resting Tone (Palpate): Relaxed (Margie Junior RN) Monitor Mode: External US (Princess Bustamante RN) Monitor Mode: External US (Margie Junior RN) FHR Baseline Rate : 145 (Princess Bustamante RN) FHR Baseline Rate : 150 (Margie Junior RN) Variability: Moderate 6-25 bpm (Princess Bustamante RN) Variability: Moderate 6-25 bpm (Margie Junior, RN) Accelerations: 15X15 (Princess Bustamante, RN) Accelerations: 15X15 (Margie Mcgrawon, RN) Decelerations: None (Princess Bustamante, RN) Decelerations: Early (Margie Junior, RN) Datetime: 01/22/2017 18:54 Dilatation (cm): 8.5 (Princess Bustamante RN) Effacement (%): 100 (Princess Bustamante RN) Station: 0 (Princess Bustamante RN) Exam by: Dr Hernandez (Princess Bustamante RN) Membrane Status: Ruptured (Princess Bustamante RN) Membranes Rupture Method: Artificial (Princess Bustamante RN) Amniotic Fluid Color: Light Meconium (Princess Bustamante RN) Amniotic Fluid Amount: Moderate (Princess Bustamante RN) Amniotic Fluid Odor: Normal (Princses Bustamante, LOIS) Datetime: 01/22/2017 18:45 Monitor Mode: External; Palpation (Princess Bustamante RN) Frequency (min): 2-3.5 (Princess Bustamante RN) Quality: Moderate to Strong (Princess Baidy, RN) Duration (sec): 70-90 (Princess Baidy, RN) Duration Criteria: Less than Two 120 Second Contractions (Princess Baidy, RN) Pattern: Normal: <= 5 Contractions in 10 Minutes (Princess Baidy, RN) Resting Tone (Palpate): Relaxed (Princess Baidy, RN) Monitor Mode: External US (Princess Baidy, RN) FHR Baseline Rate : 145 (Princess Baidy, RN) Variability: Moderate 6-25 bpm (Princess Baidy, RN) Accelerations: 10X10 (Princess Baidy, RN) Decelerations: None (Princess Baidy, RN) Datetime: 01/22/2017 18:44 NBP Sys/Holli/Mean (mmHg): 139 (QS system process) : 92 (QS system process) : 109 (QS system process) Pulse: 96 (QS system process) LaborFlag: Labor (QS system process) Datetime: 01/22/2017 18:31 Analgesics/Sedatives: Tylenol (mg) @ 975 (Princess Baidy, RN) Datetime: 01/22/2017 18:30 Monitor Mode: External; Palpation (Princess Bustamante, RN) Frequency (min): 2-3 (Princess Bustamante, RN) Quality: Moderate to Strong (Princess Baidy, RN) Duration (sec): 70-110 (Princess Baipito, RN) Duration Criteria: Less than Two 120 Second Contractions (Princess Baipito, RN) Pattern: Normal: <= 5 Contractions in 10 Minutes (Princess Bustamante, RN) Resting Tone (Palpate): Relaxed (Princess Bustamante, RN) Monitor Mode: External US (Princess Bustamante, RN) FHR Baseline Rate : 145 (Princess Baipito, RN) Variability: Moderate 6-25 bpm (Princess Baidy, RN) Accelerations: None (Princess Baipito, RN) Datetime: 01/22/2017 18:29 NBP Sys/Holli/Mean (mmHg): 129 (QS system process) : 89 (QS system process) : 98 (QS system process) Pulse: 95 (QS system process) LaborFlag: Labor (QS system process) Datetime: 01/22/2017 18:24 Communication Comments: Dr Hernandez notified of pt headache order recieved for tylenol. (Princess Baidy, RN) Datetime: 01/22/2017 18:23 Strip Reviewed by: Dr Hernandez (Princess Baidy, RN) Datetime: 01/22/2017 18:22 Patient Care Comments: pt requesting something for headache, feeling more pressure with ctx (Princess Baidy, RN) Datetime: 01/22/2017 18:20 Dilatation (cm): 8.0 (Princess Bustamante, RN) Effacement (%): 90 (Princess Bustamante, RN) Station: -1 (Princess Bustamante, RN) Exam by: Marce Bustamante RN (Princess Bustamante, RN) Datetime: 01/22/2017 18:15 Monitor Mode: External; Palpation (Princess Bustamante, RN) Frequency (min): 2-3 (Princess Bustamante, RN) Quality: Moderate to Strong (Princess Bustamante, RN) Duration (sec): 90-120 (Princess Bustamante, RN) Duration Criteria: More than Two 120 Second or Greater Contractions (Princess Bustamante, RN) Pattern: Normal: <= 5 Contractions in 10 Minutes (Princess Bustamante, RN) Resting Tone (Palpate): Relaxed (Princess Bustamante, RN) Monitor Mode: External US (Princess Bustamante, RN) FHR Baseline Rate : 145 (Princess Bustamante, RN) Variability: Moderate 6-25 bpm (Princess Baipito, RN) Accelerations: Prolonged (Princess Bustamante, RN) Decelerations: Prolonged (Princess Bustamante, RN) Datetime: 01/22/2017 18:00 Monitor Mode: External; Palpation (Princess Bustamante RN) Frequency (min): 2-3 (Princess Bustamante RN) Quality: Moderate to Strong (Princess Bustamante RN) Duration (sec): 80-120 (Princess Bustamante RN) Duration Criteria: More than Two 120 Second or Greater Contractions (Princess Bustamante RN) Pattern: Normal: <= 5 Contractions in 10 Minutes (Princess Bustamante RN) Resting Tone (Palpate): Relaxed (Princess Bustamante RN) Monitor Mode: External US (Princess Bustamante, LOIS) FHR Baseline Rate : 145 (Princess Bustamante RN) Variability: Moderate 6-25 bpm (Princess Bustamante RN) Accelerations: None (Princess Bustamante RN) Decelerations: None (Princess Bustamante RN)
[2017-01-22] MEDS ORDERED: IBUPROFEN 800 MG TABLET ONE (20:45)
[2017-01-22] MEDS ORDERED: BENZOCAINE/MENTHOL AEROSOL SPRAY 56 ML TOP PRN (20:47)
[2017-01-22] MEDS ORDERED: DIPH/PERTUSS(ACELL)/TETANUS VAC/PF 0.5 ML SYR (>=10YO) IM PRN (20:47)
[2017-01-22] MEDS ORDERED: ACETAMINOPHEN WITH CODEINE #3 TABLET PO PRN ×2 (20:47)
[2017-01-22] MEDS ORDERED: DIBUCAINE 1% OINTMENT 28 GM TP PRN (20:47)
[2017-01-22] MEDS ORDERED: MEASLES,MUMPS&RUBELLA VACC/PF 0.5 ML VIAL SUBCUT PRN (20:47)
--- NOTE | 2017-01-22 22:26 | Admission Physical ---
Datetime Report Generated by CPN: 01/22/2017 22:26 CURRENT ADMISSION Chief Complaint: Uterine Contractions Indication for Induction: Post Dates; Other Indication for Induction- Other: BPP 2/8 Admit Plan: Admit to Unit; Initiate Labor Induction Protocol ALLERGIES Medication Allergies: No Medication Allergies: No Known Allergies (01/21/2017) Medication Allergies: No Known Allergies (01/13/2017) Medication Allergies: No Known Allergies (12/29/2015) Latex: No Latex Allergies Food Allergies: n/a Environmental Allergies: n/a OBSTETRICAL HISTORY EDC: 01/21/2017 00:00 : 1 Para: 0 Term: 0 : 0 SAB: 0 IAB: 0 Ectopic: 0 Livin Cesareans: 0 VBACs: 0 Multiple Births: 0 Gestational Diabetes: No Rh Sensitization: No Incompetent Cervix: No JUSTO: No Infertility: No ART Treatment: No Uterine Anomaly: No IUGR: No Hx Previous C/S: No Macrosomia: No Hx Loss/Stillborn: No PIH: No Hx : No Placenta Previa/Abruption: No Depression/PP Depression: No PTL/PROM: No Post Hemorrhage: No Current Procedures: Ultrasound; NST Obstetrical History Comments: G1: current SEE RECORDS Alcohol: No Marijuana : No Cocaine: No Other Illicit Drugs: No Cigarettes: Former Smoker. [id number] Cigarette Frequency: < 5 per day Advised to Stop: Yes Cigarette Comments: pt states that she stopped smoking recently MEDICAL HISTORY Diabetes: No Blood Transfusion: No Pulmonary Disease (Asthma, TB): No Breast Disease: No Hypertension: No Nut Sorter Surgery: No Heart Disease: No Hosp/Surgery: Yes Autoimmune Disorder: No Anesthetic Complications: No Kidney Disease: No Abnormal Pap Smear: No Neuro/Epilepsy: No Psychiatric Disorders: No Other Medical Diseases: No Hepatitis/Liver Disease: No Significant Family History: No Varicosities/Phlebitis: No Trauma/Violence : No Thyroid Dysfunction: No Medical History Comments: eye surgery during childhood, smoker, broken ankle 12/2015 INFECTIOUS HISTORY Gonorrhea: No Genital Herpes: No Chlamydia: No Tuberculosis: No Syphilis: No Hepatitis: No HIV/AIDS Exposure: No Rash or Viral Illness: No HPV: No PHYSICAL EXAM General: Normal HEENT: Normal Neurologic: Normal Thyroid: Deferred Heart: Normal Lungs: Normal Breast: Deferred Back: Normal Abdomen: Normal Genitourinary Exam: Normal Extremities: Normal DTRs: Normal Pelvic Type: Adequate Vital Signs: Reviewed; Within Normal Limits VAGINAL EXAM Dilatation: 3 Effacement: 50 Station: -2 MEMBRANES Membranes: Intact FETUS A EGA: 40.1 Monitoring: External US FHR- Baseline: 140 Variability: Moderate 6-25bpm Accelerations: Absent Decelerations: None FHR Category: Category II PLANS FOR LABOR AND DELIVERY Labor and Delivery: None Pain Management: Epidural Feeding Preference: Breast Benefit of Breast Feed Discussed: Yes Circumcision: Yes INFORMED CONSENT Signature: with User ID: [email or web address]
[2017-01-22] MEDS ORDERED: INFLUENZA ADLT QUAD (36MOS+) 2016-17 VAC 0.5 ML SYR IM PRN (22:28)
[2017-01-22] MEDS: IBUPROFEN 800 MG TABLET PO SCH (23:28)
[2017-01-23] MEDS: IBUPROFEN 800 MG TABLET PO SCH ×3 (05:05→21:04)
--- NOTE | 2017-01-23 07:00 | L&D Flow Sheet ---
LD Flowsheet Datetime Report Generated by CPN: 01/23/2017 07:00 Datetime: 01/22/2017 21:29 NBP Sys/Holli/Mean (mmHg): 119 (QS system process) : 61 (QS system process) : 81 (QS system process) Pulse: 86 (QS system process) Datetime: 01/22/2017 21:14 NBP Sys/Holli/Mean (mmHg): 115 (QS system process) : 65 (QS system process) : 84 (QS system process) Pulse: 102 (QS system process) Datetime: 01/22/2017 20:44 NBP Sys/Holli/Mean (mmHg): 119 (QS system process) : 71 (QS system process) : 84 (QS system process) Temperature (F): 98.4 (Fior Wright RN) Temperature (C): 36.9 (QS system process) Temperature Route: Oral (Fior Wright RN) Datetime: 01/22/2017 20:29 NBP Sys/Holli/Mean (mmHg): 115 (QS system process) : 71 (QS system process) : 87 (QS system process) Pulse: 106 (QS system process) Datetime: 01/22/2017 20:26 NBP Sys/Holli/Mean (mmHg): 128 (QS system process) : 72 (QS system process) : 93 (QS system process) Pulse: 103 (QS system process) Datetime: 01/22/2017 20:14 NBP Sys/Holli/Mean (mmHg): 131 (QS system process) : 79 (QS system process) : 99 (QS system process) Pulse: 105 (QS system process) Temperature (F): 98.8 (Fior Wright RN) Temperature (C): 37.1 (QS system process) Temperature Route: Axillary (Fior Wright RN) Datetime: 01/22/2017 20:00 Pain Scale: 1 (Fior Wright RN) Pain Presence: Constant (Fior Wright RN) Pain Type: Burning (Fior Wright RN) Pain Location: Perineum (Fior Enriquetaman, RN) Pain Relief Measures: Comfort Measures (Fior Wright, RN) Datetime: 01/22/2017 19:48 Stage of : Recovery (Fior Enriquetaman, RN) Datetime: 01/22/2017 19:45 Communication: Provider at Bedside (Dolores Ring, RN) Datetime: 01/22/2017 19:44 Pushing: Urge to Push; Involuntary Pushing (Dolores Ring, RN) Pushing Position: Pushing with Contractions; Pushing Lithotomy (Dolores Ring, RN) Pushing Progress: Presenting Part Visible; with Pushing (Dolores Ring, RN) Datetime: 01/22/2017 19:35 Pushing: Coached on Pushing; Urge to Push; Involuntary Pushing (Dolores Ring, RN) Pushing Position: Pushing with Contractions; Pushing Lithotomy (Dolores Ring, RN) Datetime: 01/22/2017 19:32 Actions for Decelerations: Oxygen Applied (Dolores Ring, RN) Datetime: 01/22/2017 19:29 Actions for Decelerations: IV Bolus (Dolores Ring, RN) Patient Care Comments: Cold washcloth applied to neck (Dolores Ring, RN) Datetime: 01/22/2017 19:27 Patient Position/Activity: Left Tilt (Dolores Ring, RN) Datetime: 01/22/2017 19:24 Pushing: Urge to Push (Princess Baidy, RN) Pushing Position: Pushing with Contractions; Pushing Lithotomy (Princess Baidy, RN) Datetime: 01/22/2017 19:23 Provider Reviewed Strip: Yes (Princess Bustamante RN) Notification Reason: Status Update (Princess Bustamante RN) Communication Comments: Dr. Hernandez on unit (Princess Bustamante, RN) Datetime: 01/22/2017 19:20 I/O Interventions: Lewis Discontinued (Dolores Ring, RN) Datetime: 01/22/2017 19:16 Dilatation (cm): 10.0 (Fior Wright RN) Effacement (%): 100 (Fior Wright RN) Station: 2 (Fior Wright RN) Exam by: Liya Wright RN (Fior Wright RN) Datetime: 01/22/2017 19:10 Respirations: 20 (Princess Bustamante RN) Temperature (F): 99.4 (Princess Bustamante RN) Temperature (C): 37.4 (QS system process) Communication Comments: Handoff report given to Joaquin Wright RN (Princess Bustamante RN) LaborFlag: Labor (QS system process) Datetime: 01/22/2017 19:02 Pain Scale: 2 (Princess Bustamante RN) Pain Assessment Comments: headache, pt feeling a lot of pressure (Princess Bustamante RN) LaborFlag: Labor (QS system process) Datetime: 01/22/2017 19:00 Monitor Mode: External; Palpation (Princess Bustamante RN) Monitor Mode: External; Palpation (Margie Junior RN) Frequency (min): 1.5-2.5 (Princess Bustamante RN) Frequency (min): 1.5-2.5 (Margie Junior, LOIS) Quality: Moderate to Strong (Princess Bustamante RN) Quality: Moderate to Strong (Margie Junior RN) Duration (sec): 70-120 (Princess Bustamante RN) Duration (sec): 60-90 (Margie Junior, RN) Duration Criteria: More than Two 120 Second or Greater Contractions (Princess Bustamante RN) Pattern: Normal: <= 5 Contractions in 10 Minutes (Princess Bustamante RN) Resting Tone (Palpate): Relaxed (Princess Bustamante RN) Resting Tone (Palpate): Relaxed (Margie Junior RN) Monitor Mode: External US (Princess Bustamante RN) Monitor Mode: External US (Margie Junior RN) FHR Baseline Rate : 145 (Princess Bustamante, RN) FHR Baseline Rate : 150 (Margie Junior, RN) Variability: Moderate 6-25 bpm (Princess Bustamante, RN) Variability: Moderate 6-25 bpm (Margie Junior, RN) Accelerations: 15X15 (Princess Bustamante, RN) Accelerations: 15X15 (Margie Junior, RN) Decelerations: None (Princess Bustamante, RN) Decelerations: Early (Margie Junior RN) Datetime: 01/22/2017 18:54 Dilatation (cm): 8.5 (Princess Bustamante RN) Effacement (%): 100 (Princess Bustamante RN) Station: 0 (Princess Bustamante RN) Exam by: Dr Hernandez (Princess Bustamante, RN) Membrane Status: Ruptured (Princess Bustamante, RN) Membranes Rupture Method: Artificial (Princess Bustamante, RN) Amniotic Fluid Color: Light Meconium (Princess Bustamante, RN) Amniotic Fluid Amount: Moderate (Princess Baipito, RN) Amniotic Fluid Odor: Normal (Princess Bustamante, RN) Datetime: 01/22/2017 18:45 Monitor Mode: External; Palpation (Princess Bustamante, LOIS) Frequency (min): 2-3.5 (Princess Bustamante RN) Quality: Moderate to Strong (Princess Bustamante RN) Duration (sec): 70-90 (Princess Bustamante, RN) Duration Criteria: Less than Two 120 Second Contractions (Princess Bustamante, RN) Pattern: Normal: <= 5 Contractions in 10 Minutes (Princess Bustamante, RN) Resting Tone (Palpate): Relaxed (Princess Bustamante, RN) Monitor Mode: External US (Princess Bustamante, RN) FHR Baseline Rate : 145 (Princess Bustamante, RN) Variability: Moderate 6-25 bpm (Princess Bustamante, RN) Accelerations: 10X10 (Princess Bustamante, RN) Decelerations: None (Princess Bustamante, RN) Datetime: 01/22/2017 18:44 NBP Sys/Holli/Mean (mmHg): 139 (QS system process) : 92 (QS system process) : 109 (QS system process) Pulse: 96 (QS system process) LaborFlag: Labor (QS system process) Datetime: 01/22/2017 18:31 Analgesics/Sedatives: Tylenol (mg) @ 975 (Princess Bustamante RN) Datetime: 01/22/2017 18:30 Monitor Mode: External; Palpation (Princess Bustamante RN) Frequency (min): 2-3 (Princess Bustamante RN) Quality: Moderate to Strong (Princess Bustamante RN) Duration (sec): 70-110 (Princess Bustamante RN) Duration Criteria: Less than Two 120 Second Contractions (Princess Bustamante RN) Pattern: Normal: <= 5 Contractions in 10 Minutes (Princess Bustamante RN) Resting Tone (Palpate): Relaxed (Princess Bustamante RN) Monitor Mode: External US (Princess Baidy, RN) FHR Baseline Rate : 145 (Princess Bustamante, RN) Variability: Moderate 6-25 bpm (Princess Baidy, RN) Accelerations: None (Princess Bustamante, RN) Datetime: 01/22/2017 18:29 NBP Sys/Holli/Mean (mmHg): 129 (QS system process) : 89 (QS system process) : 98 (QS system process) Pulse: 95 (QS system process) LaborFlag: Labor (QS system process) Datetime: 01/22/2017 18:24 Communication Comments: Dr Hernandez notified of pt headache order recieved for tylenol. (Princess Bustamante, RN) Datetime: 01/22/2017 18:23 Strip Reviewed by: Dr Hernandez (Princess Baidy, RN) Datetime: 01/22/2017 18:22 Patient Care Comments: pt requesting something for headache, feeling more pressure with ctx (Princess Baidy, RN) Datetime: 01/22/2017 18:20 Dilatation (cm): 8.0 (Princess Baidy, RN) Effacement (%): 90 (Princess Baidy, RN) Station: -1 (Princess Baidy, RN) Exam by: B Robby RN (Princess Baidy, RN) Datetime: 01/22/2017 18:15 Monitor Mode: External; Palpation (Princess Baidy, RN) Frequency (min): 2-3 (Princess Baidy, RN) Quality: Moderate to Strong (Princess Baidy, RN) Duration (sec): 90-120 (Princess Baidy, RN) Duration Criteria: More than Two 120 Second or Greater Contractions (Princess Baidy, RN) Pattern: Normal: <= 5 Contractions in 10 Minutes (Princess Baidy, RN) Resting Tone (Palpate): Relaxed (Princess Baidy, RN) Monitor Mode: External US (Princess Baidy, RN) FHR Baseline Rate : 145 (Princess Baidy, RN) Variability: Moderate 6-25 bpm (Princess Baidy, RN) Accelerations: Prolonged (Princess Baidy, RN) Decelerations: Prolonged (Princess Baidy, RN) Datetime: 01/22/2017 18:00 Monitor Mode: External; Palpation (Princess Baidy, RN) Frequency (min): 2-3 (Princess Baidy, RN) Quality: Moderate to Strong (Princess Baidy, RN) Duration (sec): 80-120 (Princess Baidy, RN) Duration Criteria: More than Two 120 Second or Greater Contractions (Princess Baidy, RN) Pattern: Normal: <= 5 Contractions in 10 Minutes (Princess Baidy, RN) Resting Tone (Palpate): Relaxed (Princess Baidy, RN) Monitor Mode: External US (Princess Bustamante RN) FHR Baseline Rate : 145 (Princess Bustamante RN) Variability: Moderate 6-25 bpm (Princess Bustamante RN) Accelerations: None (Princess Bustamante RN) Decelerations: None (Princess Bustamante RN)
[2017-01-23 07:24] LABS: HEMATOCRIT 26.9 % (36.0-47.0); HGB HCT DIFFERENCE 0.1; MEAN CORPUSCULAR HEMOGLOBIN 29.4 pg (27.0-33.4); MEAN CORPUSCULAR HGB CONC 33.6 g/dL (32.0-36.0); MEAN CORPUSCULAR VOLUME 88 fl (80-97); RED BLOOD COUNT 3.07 10^6/uL (3.72-5.28); RED CELL DISTRIBUTION WIDTH 12.9 % (11.5-14.0); WHITE BLOOD COUNT 19.9 10^3/uL (4.0-10.5)
[2017-01-23] MEDS: FERROUS SULFATE 325 MG TABLET PO SCH ×2 (10:19→17:23)
[2017-01-23] MEDS: PRENATAL VITAMIN W-O CA NO5/FE FUMARATE/FA CAPSULE PO SCH (10:19)
[2017-01-23] MEDS: SENNOSIDES/DOCUSATE 8.6-50 MG 1 EACH TABLET PO SCH (10:19)
[2017-01-23] MEDS: DOCUSATE SODIUM 100 MG CAPSULE PO SCH ×2 (10:19→17:23)
--- NOTE | 2017-01-23 18:00 | L&D Current Admission ---
Current Admit Datetime Report Generated by CPN: 01/23/2017 18:00 ADMISSION INFORMATION Current Admit Date/Time: 01/22/2017 14:00 (01/22/2017 14:12:Princess Bustamante RN) Reason for Admission: Induction of Labor; Other (01/22/2017 14:12:Princess Bustamante RN) Other Reason for Admission: Pre-Eclampsia Workup (01/13/2017 16:46:Jeffry Coombs RN) Chief Complaint: Uterine Cramping (01/22/2017 14:12:Princess Bustamante RN) Medications During : Vitamin (01/22/2017 14:12:Princess Bustamante RN) EGA per Dates: 40.1 (01/22/2017 14:12:QS system process) Method of Arrival: Wheelchair (01/22/2017 14:12:Princess Bustamante RN) Admitted From: Home (01/22/2017 14:12:Princess Bustamante RN) Reason for Induction: Other (01/22/2017 14:12:Princess Bustamante RN) Reason for Induction- Other: BPP 2/8 (01/22/2017 14:12:Princess Bustamante RN) Records Available: Yes (01/22/2017 14:12:Princess Bustamante RN) General Admission Information: Reviewed; Updated; Confirmed (01/22/2017 14:12:Princess Bustamante RN) General Admission Reviewed By: Marce Bustamante RN (01/22/2017 14:12:Princess Bustamante RN) BELONGINGS/ADVANCED DIRECTIVES Valuables/Personal Effects: None (01/22/2017 14:12:Princess Bustamante RN) Other Belongings: see valuables consent (01/22/2017 14:12:Princess Bustamante RN) Disposition of Belongings: Kept with Patient (01/22/2017 14:12:Princess Bustamante RN) Advance Direct for Healthcare: No, and Wants No Information (01/22/2017 14:12:Princess Bustamante RN) Durable Power of Writing Manager: No (01/22/2017 14:12:Princess Bustamante RN) Living Will: No (01/22/2017 14:12:Princess Bustamante RN) Organ Donor: Yes (01/22/2017 14:12:Princess Bustamante RN) Pt Rights Information Given: Yes (01/22/2017 14:12:Princess Bustamante RN) Pt Understands Pt Rights: Yes (01/22/2017 14:12:Princess Bustamante RN) LEARNING ASSESSMENT Knowledge Level: Understands L_D Process (01/22/2017 14:12:Princess Bustamante RN) Barriers to Learning: None (01/22/2017 14:12:Princess Bustamante RN) Learning Readiness: Motivated (01/22/2017 14:12:Princess Bustamante RN) Learns Best By: 1 to 1 Instruction (01/22/2017 14:12:Princess Bustamante RN) Learning Needs: Labor and Delivery Process; Pain Management; Symptoms to Report (01/22/2017 14:12:Princess Bustamante RN) DOMESTIC VIOLANCE SCREENING Dom Viol Threatened/Hurt: No (01/22/2017 14:12:Princess Bustamante RN) Hx of Abuse/Neglect past 2yrs: No (01/22/2017 14:12:Princess Bustamante RN) Feel Unsafe Going Home: No (01/22/2017 14:12:Princess Bustamante RN) Addt'l Observ Indicating Abuse: No (01/22/2017 14:12:Princess Bustamante RN) Reason Unable to Complete Screen: N/A, Screen Completed (01/22/2017 14:12:Princess Bustamante RN) Considered Personal Harm/Suicide: No (01/22/2017 14:12:Princess Baidy, RN) NUTRITIONAL/FUNCTIONAL SCREENING Problem with Appetite >5 Days: No (01/22/2017 14:12:Princess Bustamante RN) Chew/Swallow Difficulties: No (01/22/2017 14:12:Princess Bustamante RN) Inappropriate Wt Gain/Loss: No (01/22/2017 14:12:Princess Bustamante RN) Presence Skin Breakdown/Ulcer: No (01/22/2017 14:12:Princess Bustamante RN) Special Diet: No (01/22/2017 14:12:Princess Bustamante RN) Pt Requests Machine Bunch Maker Visit: No (01/22/2017 14:12:Princess Bustamante RN) Hx of Any of the Following?: N/A (01/22/2017 14:12:Princess Bustamante RN) New Diagnosis of: N/A (01/22/2017 14:12:Princess Bustamante RN) Requires Assist w/Ambulation: No (01/22/2017 14:12:Princess Bustamante RN) Uses Assist Device to Ambulate: No (01/22/2017 14:12:Princess Bustamante RN) Pt Requires Help w/ADL's: No (01/22/2017 14:12:Princess Bustamante RN)
--- NOTE | 2017-01-23 18:00 | L&D General Admission ---
General Admit Datetime Report Generated by CPN: 01/23/2017 18:00 INFORMATION Patient Age: 26 (01/06/2017 08:53:QS system process) EDC: 01/21/2017 00:00 (01/13/2017 16:36:Juanis Rodriguez RN) : 1 (01/13/2017 16:36:Juanis Rodriguez RN) Para: 0 (01/13/2017 16:36:Juanis Rodriguez RN) Term: 0 (01/13/2017 16:36:Juanis Rodriguez RN) : 0 (01/13/2017 16:36:Juanis Rodriguez RN) Spontaneous Abortions: 0 (01/13/2017 16:36:Juanis Rodriguez RN) Induced Abortions: 0 (01/13/2017 16:36:Juanis Rodriguez RN) Livin (01/13/2017 16:36:Juanis Rodriguez RN) Cesareans: 0 (01/13/2017 16:36:Juanis Rodriguez RN) VBACs: 0 (01/13/2017 16:36:Juanis Rodriguez RN) Ectopic: 0 (01/13/2017 16:36:Juanis Rodriguez RN) Multiple Births: 0 (01/13/2017 16:36:Juanis Rodriguez RN) Baby, Number in Womb: 1 (01/13/2017 16:36:VINH Terrazas) CARE Primary Display Associate: [employer] (01/13/2017 16:36:VINH Pak) Month of 1st Visit: July (01/13/2017 16:36:Juanis Rodriguez RN) Adequate Care: Yes (01/13/2017 16:36:Juanis Rodriguez RN) Prepregnancy Weight (lb): 132 (01/13/2017 16:36:Juanis Rodriguez RN) Prepregnancy Weight (kg): 60.0 (01/13/2017 16:36:QS system process) Height (in): 66 (01/22/2017 22:25:QS system process) ALLERGIES Medication Allergy: No (01/13/2017 16:36:Juanis Rodriguez RN) Medication Allergies: No Known Allergies (01/21/2017) (01/21/2017 16:54:QS system process) Latex Allergy: No Latex Allergies (01/13/2017 16:36:Juanis Rodriguez RN) Food Allergies: n/a (01/13/2017 16:36:Princess Bustamante RN) Environmental Allergies: n/a (01/13/2017 16:36:Princess Bustamante RN) COMMUNICATION Primary Language: Wallisian (01/13/2017 16:36:Juanis Rodriguez RN) Medical Tx Preferred Language: Wallisian (01/13/2017 16:36:Juanis Rodriguez RN) Communication Barrier(s): None (Annotations: Data stored by N on behalf of user) (01/13/2017 16:36:Princess Bustamante RN) DEMOGRAPHICS Address: [place] [address] (01/06/2017 08:53:QS system process) Zipcode: [address] (01/06/2017 08:53:QS system process) County: [place] (01/13/2017 16:36:Princess Bustamante RN) Home (01/06/2017 08:53:QS system process) Work (01/13/2017 16:14:QS system process) SSN: [id number] (01/06/2017 08:53:QS system process) Next of Kin Name: AARON ORTEGA (01/06/2017 08:53:QS system process) Next of Kin (01/06/2017 08:53:QS system process) Next of Kin Relationship: OR (01/06/2017 08:53:QS system process) Date of : 1990 (01/06/2017 08:53:QS system process) Marital Status: Single (01/06/2017 08:53:QS system process) Sex: Female (01/06/2017 08:53:QS system process) Occupation: Other (01/13/2017 16:36:Princess Bustamante RN) Occupation- Other : [employer] (01/13/2017 16:36:Princess Bustamante RN) Race: (01/06/2017 08:53:QS system process) Ethnicity: Non- or (01/06/2017 08:53:QS system process) Restorationist: None (01/06/2017 08:53:QS system process) FOB Involved: Yes (01/13/2017 16:36:Princess Bustamante RN) Father of Baby Name: Tony (01/13/2017 16:36:Princess Bustamante RN) DRUG AND ALCOHOL USE Alcohol: No (01/13/2017 16:36:Juanis Rodriguez RN) Cigarettes: Former Smoker. [id number] (01/13/2017 16:36:Princess Bustamante RN) Average Cigarettes Smoked: < 5 per day (01/13/2017 16:36:Juanis Rodriguez RN) Advised to Stop Smoking: Yes (01/13/2017 16:36:Juanis Rodriguez RN) Cigarette Comments: pt states that she stopped smoking recently (01/13/2017 16:36:Princess Bustamante RN) Marijuana: No (01/13/2017 16:36:Juanis Rodriguez RN) Cocaine: No (01/13/2017 16:36:Juanis Rodriguez RN) Other Illicit Drugs: No (01/13/2017 16:36:Juanis Rodriguez RN) VACCINE HISTORY Influenza Vaccine: No (01/13/2017 16:36:Juanis Rodriguez RN) Pneumococcal Vaccine: No (01/13/2017 16:36:Juanis Rodriguez RN) Tetanus Vaccine: No (01/13/2017 16:36:Juanis Rodriguez RN) Tdap Vaccine: No (01/13/2017 16:36:Juanis Rodriguez RN) Hepatitis B Vaccine: No (01/13/2017 16:36:Juanis Rodriguez RN) Feeding Preference: Breast (01/13/2017 16:36:Juanis Rodriguez RN) Benefit of Breast Feed Discussed: Yes (01/13/2017 16:36:Juanis Rodriguez RN) Circumcision: Yes (01/13/2017 16:36:Juanis Rodriguez RN) Classes Attended: No (01/13/2017 16:36:Juanis Rodriguez RN) Tubal Ligation: No (01/13/2017 16:36:Juanis Rodriguez RN) Tubal Authorization Signed: N/A (01/13/2017 16:36:Juanis Rodriguez RN) Consent: N/A (01/13/2017 16:36:Juanis Rodriguez RN) Consent Signed: N/A (01/13/2017 16:36:Juanis Rodriguez RN) Pain Management Plans: Epidural (01/13/2017 16:36:Juanis Rodriguez RN) Plans for Labor and Delivery: None (01/13/2017 16:36:Juanis Rodriguez RN) Support Person: Aaron Ortega (01/13/2017 16:36:Juanis Rodriguez RN) Support Person Relationship: Other (01/13/2017 16:36:Juanis Rodriguez RN) Other Relationship: pastors (01/13/2017 16:36:Juanis Rodriguez RN) Cultural/Spritual Practice: No (01/13/2017 16:36:Juanis Rodriguez RN) Spir/Cult Dietary Needs: No (01/13/2017 16:36:Juanis Rodriguez RN) LIVING SITUATION/DISCHARGE PLAN Living Arrangements: Apartment (01/13/2017 16:36:Juanis Rodriguez RN) Adequate Access to:: Electric; Heat; Refrigeration; Plumbing/Running water; Phone; Transportation (01/13/2017 16:36:Juanis Rodriguez RN) WIC Program: Yes (01/13/2017 16:36:Juanis Rodriguez RN) Discharge Campus Recruiter Person: Rosalind Irving - friend (01/13/2017 16:36:Juanis Rodriguez RN) Person to Help after Discharge: Rosalind Irving - friend (01/13/2017 16:36:Juanis Rodriguez RN) Currently Using Commun Resources: No (01/13/2017 16:36:Juanis Rodriguez RN) Outside Agency/Seismic Engineer: No (01/13/2017 16:36:Juanis Rodriguez RN) Car Seat for Discharge: Yes (01/13/2017 16:36:Juanis Rodriguez RN) Adoption Requested: No (01/13/2017 16:36:Juanis Rodriguez RN) Pt Contact w/ Post : N/A (01/13/2017 16:36:Juanis Rodriguez RN) LABS Blood Type: A Positive (01/13/2017 16:36:Juanis Rodriguez RN) Antibody Screen: negative (01/13/2017 16:36:Juanis Rodriguez RN) Rho(G) this : Not Applicable (01/13/2017 16:36:Princess Bustamante RN) Hemoglobin: 9.0 L (01/23/2017 07:00:QS system process) Hematocrit: 26.9 L (01/23/2017 07:00:QS system process) MCV: 88 (01/23/2017 07:00:QS system process) Group Beta Strep: negative (01/13/2017 16:36:Juanis Rodriguez RN) Gonorrhea: Negative (01/13/2017 16:36:Juanis Rodriguez RN) Chlamydia: Negative (01/13/2017 16:36:Juanis Rodriguez RN) RPR/VDRL: Nonreactive (01/13/2017 16:36:Juanis Rodriguez RN) Hepatitis B: Negative (01/13/2017 16:36:Juanis Rodriguez RN) Rubella: Immune (01/13/2017 16:36:Juanis Rodriguez RN) Varicella: Non Susceptible (01/13/2017 16:36:Juanis Rodriguez RN) OB/PREVIOUS HISTORY Current Procedures: Ultrasound; NST (01/13/2017 16:36:Juanis Rodriguez RN) History of Previous : No (01/13/2017 16:36:Juanis Rodriguez RN) History of Gestational Diabetes: No (01/13/2017 16:36:Juanis Rodriguez RN) History of PIH: No (01/13/2017 16:36:Juanis Rodriguez RN) History of Incompetent Cervix: No (01/13/2017 16:36:Juanis Rodriguez RN) History of Placenta Previa/Abrup: No (01/13/2017 16:36:Juanis Rodriguez RN) History of Macrosomia: No (01/13/2017 16:36:Juanis Rodriguez RN) History of IUGR: No (01/13/2017 16:36:Juanis Rodriguez RN) History of Hemorrhage: No (01/13/2017 16:36:Juanis Rodriguez RN) History of Loss/Stillborn: No (01/13/2017 16:36:Juanis Rodriguez RN) History of : No (01/13/2017 16:36:Juanis Rodriguez RN) History of D (Rh) Sensitization: No (01/13/2017 16:36:Juanis Rodriguez RN) History Recurrent Loss/Stillborn: No (01/13/2017 16:36:Juanis Rodriguez RN) History Depression/PP Depression: No (01/13/2017 16:36:Juanis Rodriguez RN) History of Uterine Anomaly/JUSTO: No (01/13/2017 16:36:Juanis Rodriguez RN) History of Infertility: No (01/13/2017 16:36:Juanis Rodriguez RN) History of ART Treatment: No (01/13/2017 16:36:Juanis Rodriguez RN) History of JUSTO: No (01/13/2017 16:36:Juanis Rodriguez RN) Comments Obstetrical History: G1: current (01/13/2017 16:36:Juanis Rodriguez RN) MEDICAL HISTORY Med Hx Diabetes: No (01/13/2017 16:36:Juanis Rodriguez RN) Med Hx Hypertension: No (01/13/2017 16:36:Juanis Rodriguez RN) Med Hx Heart Disease: No (01/13/2017 16:36:Juanis Rodriguez RN) Med Hx Autoimmune Disorder: No (01/13/2017 16:36:Juanis Rodriguez RN) Med Hx Kidney Disease/UTI: No (01/13/2017 16:36:Juanis Rodriguez RN) Med Hx Neurologic/Epilepsy: No (01/13/2017 16:36:Juanis Rodriguez RN) Med Hx Psychiatric Disorders: No (01/13/2017 16:36:Juanis Rodriguez RN) Med Hx Hepatitis/Liver Disease: No (01/13/2017 16:36:Juanis Rodriguez RN) Med Hx Varicosities/Phlebitis: No (01/13/2017 16:36:Juanis Rodriguez RN) Med Hx Thyroid Dysfunction: No (01/13/2017 16:36:Juanis Rodriguez RN) Med Hx Trauma/Violence: No (01/13/2017 16:36:Juanis Rodriguez RN) Med Hx Blood Transfusion: No (01/13/2017 16:36:Juanis Rodriguez RN) Med Hx Pulmonary (Asthma,TB): No (01/13/2017 16:36:Juanis Rodriguez RN) Med Hx Breast: No (01/13/2017 16:36:Juanis Rodriguez RN) Med Hx SIZE CHANGER Surgery: No (01/13/2017 16:36:Juanis Rodriguez RN) Med Hx Hospitalization/Surgery: Yes (01/13/2017 16:36:Juanis Rodriguez RN) Med Hx Anesthetic Complications: No (01/13/2017 16:36:Juanis Rodriguez RN) Med Hx Abnormal Pap Smear: No (01/13/2017 16:36:Juanis Rodriguez RN) Other Medical Diseases: No (01/13/2017 16:36:Juanis Rodriguez RN) Med Hx Significant Family Hx: No (01/13/2017 16:36:Juanis Rodriguez RN) Details of Med/Surg Hx: eye surgery during childhood, smoker, broken ankle 12/2015 (01/13/2017 16:36:Juanis Rodriguez RN) INFECTIOUS HISTORY Inf Hx Gonorrhea: No (01/13/2017 16:36:Juanis Rodriguez RN) Inf Hx Chlamydia: No (01/13/2017 16:36:Juanis Rodriguez RN) Inf Hx Syphilis: No (01/13/2017 16:36:Juanis Rodriguez RN) Inf Hx HIV/AIDS: No (01/13/2017 16:36:Juanis Rodriguez RN) Inf Hx Human Papilloma Virus: No (01/13/2017 16:36:Juanis Rodriguez RN) Inf Hx Pt/Partner Genital Herpes: No (01/13/2017 16:36:Juanis Rodriguez RN) Inf Hx Tuberculosis/Exposure: No (01/13/2017 16:36:Juanis Rodriguez RN) Inf Hx Hepatitis B,C: No (01/13/2017 16:36:Juanis Rodriguez RN) Inf Hx Rash or Viral Illness: No (01/13/2017 16:36:Juanis Rodriguez RN) GENETIC HISTORY Gen Hx Age >=35 at [place]: No (01/13/2017 16:36:Juanis Rodriguez RN) Gen Hx Thalassemia: No (01/13/2017 16:36:Juanis Rodriguez RN) Gen Hx Congenital Heart Defect: No (01/13/2017 16:36:Juanis Rodriguez RN) Gen Hx Neural Tube Defect: No (01/13/2017 16:36:Juanis Rodriguez RN) Gen Hx Down's Syndrome: No (01/13/2017 16:36:Juanis Rodriguez RN) Gen Hx Delgado-Sachs: No (01/13/2017 16:36:Juanis Rodriguez RN) Gen Hx Pillo: No (01/13/2017 16:36:Juanis Rodriguez RN) Gen Hx Familial Dysautonomia: No (01/13/2017 16:36:Juanis Rodriguez RN) Gen Hx Sickle Cell Disease/Trait: No (01/13/2017 16:36:Juanis Rodriguez RN) Gen Hx Hemophilia/Blood Disorder: No (01/13/2017 16:36:Juanis Rodriguez RN) Gen Hx Muscular Dystrophy: No (01/13/2017 16:36:Juanis Rodriguez RN) Gen Hx Cystic Fibrosis: No (01/13/2017 16:36:Juanis Rodriguez RN) Gen Hx Huntingtons Chorea: No (01/13/2017 16:36:Juanis Rodriguez RN) Gen Hx Mental Retardation/Autism: No (01/13/2017 16:36:Juanis Rodriguez RN) Gen Hx Tested for Fragile X: No (01/13/2017 16:36:Juanis Rodriguez RN) Gen Hx Other Inher/Chromosomal: No (01/13/2017 16:36:Juanis Rodriguez RN) Gen Hx Maternal Metabolic DO: No (01/13/2017 16:36:Juanis Rodriguez RN) Gen Hx Pt Father or FOB Defect: No (01/13/2017 16:36:Juanis Rodriguez RN) Gen Hx Other Genetic History: No (01/13/2017 16:36:Juanis Rodriguez RN) Gen Hx Drugs/Meds since LMP: Yes (01/13/2017 16:36:Juanis Rodriguez RN) Gen Hx Medications: PNV (01/13/2017 16:36:Juanis Rodriguez RN)
[2017-01-24] MEDS: IBUPROFEN 800 MG TABLET PO SCH (04:53)
--- NOTE | 2017-01-24 06:01 | L&D General Admission ---
General Admit Datetime Report Generated by CPN: 01/24/2017 06:00 INFORMATION Patient Age: 26 (01/06/2017 08:53:QS system process) EDC: 01/21/2017 00:00 (01/13/2017 16:36:Juanis Rodriguez RN) : 1 (01/13/2017 16:36:Juanis Rodriguez RN) Para: 0 (01/13/2017 16:36:Juanis Rodriguez RN) Term: 0 (01/13/2017 16:36:Juanis Rodriguez RN) : 0 (01/13/2017 16:36:Juanis Rodriguez RN) Spontaneous Abortions: 0 (01/13/2017 16:36:Juanis Rodriguez RN) Induced Abortions: 0 (01/13/2017 16:36:Juanis Rodriguez RN) Livin (01/13/2017 16:36:Juanis Rodriguez RN) Cesareans: 0 (01/13/2017 16:36:Juanis Rodriguez RN) VBACs: 0 (01/13/2017 16:36:Juanis Rodriguez RN) Ectopic: 0 (01/13/2017 16:36:Juanis Rodriguez RN) Multiple Births: 0 (01/13/2017 16:36:Juanis Rodriguez RN) Baby, Number in Womb: 1 (01/13/2017 16:36:VINH Terrazas) 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: [employer] (01/13/2017 16:36:VINH Pak) Month of 1st Visit: July (01/13/2017 16:36:Juanis Rodriguez RN) Adequate Care: Yes (01/13/2017 16:36:Juanis Rodriguez RN) Prepregnancy Weight (lb): 132 (01/13/2017 16:36:Juanis Rodriguez RN) Prepregnancy Weight (kg): 60.0 (01/13/2017 16:36:QS system process) Height (in): 66 (01/22/2017 22:25:QS system process) ALLERGIES Medication Allergy: No (01/13/2017 16:36:Juanis Rodriguez RN) Medication Allergies: No Known Allergies (01/21/2017) (01/21/2017 16:54:QS system process) Latex Allergy: No Latex Allergies (01/13/2017 16:36:Juanis Rodriguez RN) Food Allergies: n/a (01/13/2017 16:36:Princess Bustamante RN) Environmental Allergies: n/a (01/13/2017 16:36:Princess Bustamante RN) COMMUNICATION Primary Language: Cymro (01/13/2017 16:36:Juanis Rodriguez RN) Medical Tx Preferred Language: Cymro (01/13/2017 16:36:Juanis Rodriguez RN) Communication Barrier(s): None (Annotations: Data stored by N on behalf of user) (01/13/2017 16:36:Princess Bustamante RN) DEMOGRAPHICS Address: [place] [address] (01/06/2017 08:53:QS system process) Zipcode: [address] (01/06/2017 08:53:QS system process) County: [place] (01/13/2017 16:36:Princess Bustamante RN) Home (01/06/2017 08:53:QS system process) Work (01/13/2017 16:14:QS system process) SSN: [id number] (01/06/2017 08:53:QS system process) Next of Kin Name: AARON ORTEGA (01/06/2017 08:53:QS system process) Next of Kin (01/06/2017 08:53:QS system process) Next of Kin Relationship: OR (01/06/2017 08:53:QS system process) Date of : 1990 (01/06/2017 08:53:QS system process) Marital Status: Single (01/06/2017 08:53:QS system process) Sex: Female (01/06/2017 08:53:QS system process) Occupation: Other (01/13/2017 16:36:Princess Bustamante RN) Occupation- Other : [employer] (01/13/2017 16:36:Princess Bustamante RN) Race: (01/06/2017 08:53:QS system process) Ethnicity: Non- or (01/06/2017 08:53:QS system process) Denominational: None (01/06/2017 08:53:QS system process) FOB Involved: Yes (01/13/2017 16:36:Princess Bustamante RN) Father of Baby Name: Tony (01/13/2017 16:36:Princess Bustamante RN) DRUG AND ALCOHOL USE Alcohol: No (01/13/2017 16:36:Juanis Rodriguez RN) Cigarettes: Former Smoker. [id number] (01/13/2017 16:36:rPincess Bustamante RN) Average Cigarettes Smoked: < 5 per day (01/13/2017 16:36:Juanis Rodriguez RN) Advised to Stop Smoking: Yes (01/13/2017 16:36:Juanis Rodriguez RN) Cigarette Comments: pt states that she stopped smoking recently (01/13/2017 16:36:Prnicess Bustamante RN) Marijuana: No (01/13/2017 16:36:Juanis Rodriguez RN) Cocaine: No (01/13/2017 16:36:Juanis Rodriguez RN) Other Illicit Drugs: No (01/13/2017 16:36:Juanis Rodriguez RN) VACCINE HISTORY Influenza Vaccine: No (01/13/2017 16:36:Juanis Rodriguez RN) Pneumococcal Vaccine: No (01/13/2017 16:36:Juanis Rodriguez RN) Tetanus Vaccine: No (01/13/2017 16:36:Juanis Rodriguez RN) Tdap Vaccine: No (01/13/2017 16:36:Juanis Rodriguez RN) Hepatitis B Vaccine: No (01/13/2017 16:36:Juanis Rodriguez RN) Feeding Preference: Breast (01/13/2017 16:36:Juanis Rodriguez RN) Benefit of Breast Feed Discussed: Yes (01/13/2017 16:36:Juanis Rodriguez RN) Circumcision: Yes (01/13/2017 16:36:Juanis Rodriguez RN) Classes Attended: No (01/13/2017 16:36:Juanis Rodriguez RN) Tubal Ligation: No (01/13/2017 16:36:Juanis Rodriguez RN) Tubal Authorization Signed: N/A (01/13/2017 16:36:Juanis Rodriguez RN) Consent: N/A (01/13/2017 16:36:Juanis Rodriguze RN) Consent Signed: N/A (01/13/2017 16:36:Juanis Rodriguez RN) Pain Management Plans: Epidural (01/13/2017 16:36:Juanis Rodriguez RN) Plans for Labor and Delivery: None (01/13/2017 16:36:Juanis Rodriguez RN) Support Person: Aaron Ortega (01/13/2017 16:36:Juanis Rodriguez RN) Support Person Relationship: Other (01/13/2017 16:36:Juanis Rodriguez RN) Other Relationship: pastors (01/13/2017 16:36:Juanis Rodriguez RN) Cultural/Spritual Practice: No (01/13/2017 16:36:Juanis Rodriguez RN) Spir/Cult Dietary Needs: No (01/13/2017 16:36:Juanis Rordiguez RN) LIVING SITUATION/DISCHARGE PLAN Living Arrangements: Apartment (01/13/2017 16:36:Juanis Rodriguez RN) Adequate Access to:: Electric; Heat; Refrigeration; Plumbing/Running water; Phone; Transportation (01/13/2017 16:36:Juanis Rodriguez RN) WIC Program: Yes (01/13/2017 16:36:Juanis Rodriguez RN) Discharge Inspector Insulation Person: Rosalind Irving - friend (01/13/2017 16:36:Juanis Rodriguez RN) Person to Help after Discharge: Rosalind Irving - friend (01/13/2017 16:36:Juanis Rodriguez RN) Currently Using Commun Resources: No (01/13/2017 16:36:Juanis Rodriguez RN) Outside Agency/Crystal Cutter: No (01/13/2017 16:36:Juanis Rodriguez RN) Car Seat for Discharge: Yes (01/13/2017 16:36:Juanis Rodriguez RN) Adoption Requested: No (01/13/2017 16:36:Juanis Rodriguez RN) Pt Contact w/ Post : N/A (01/13/2017 16:36:Juanis Rodriguez RN) LABS Blood Type: A Positive (01/13/2017 16:36:Juanis Rodriguez RN) Antibody Screen: negative (01/13/2017 16:36:Juanis Rodriguez RN) Rho(G) this : Not Applicable (01/13/2017 16:36:Princess Bustamante RN) Hemoglobin: 9.0 L (01/23/2017 07:00:QS system process) Hematocrit: 26.9 L (01/23/2017 07:00:QS system process) MCV: 88 (01/23/2017 07:00:QS system process) Group Beta Strep: negative (01/13/2017 16:36:Juanis Rodriguez RN) Gonorrhea: Negative (01/13/2017 16:36:Juanis Rodriguez RN) Chlamydia: Negative (01/13/2017 16:36:Juanis Rodriguez RN) RPR/VDRL: Nonreactive (01/13/2017 16:36:Juanis Rodriguez RN) Hepatitis B: Negative (01/13/2017 16:36:Juanis Rodriguez RN) Rubella: Immune (01/13/2017 16:36:Juanis Rodriguez RN) Varicella: Non Susceptible (01/13/2017 16:36:Juanis Rodriguez RN) OB/PREVIOUS HISTORY Current Procedures: Ultrasound; NST (01/13/2017 16:36:Juanis Rodriguez RN) History of Previous : No (01/13/2017 16:36:Juanis Rodriguez RN) History of Gestational Diabetes: No (01/13/2017 16:36:Juanis Rodriguez RN) History of PIH: No (01/13/2017 16:36:Juanis Rodriguez RN) History of Incompetent Cervix: No (01/13/2017 16:36:Juanis Rodriguez RN) History of Placenta Previa/Abrup: No (01/13/2017 16:36:Juanis Rodriguez RN) History of Macrosomia: No (01/13/2017 16:36:Juanis Rodriguez RN) History of IUGR: No (01/13/2017 16:36:Juanis Rodriguez RN) History of Hemorrhage: No (01/13/2017 16:36:Juanis Rodriguez RN) History of Loss/Stillborn: No (01/13/2017 16:36:Juanis Rodriguez RN) History of : No (01/13/2017 16:36:Juanis Rodriguez RN) History of D (Rh) Sensitization: No (01/13/2017 16:36:Juanis Rodriguez RN) History Recurrent Loss/Stillborn: No (01/13/2017 16:36:Juanis Rodriguez RN) History Depression/PP Depression: No (01/13/2017 16:36:Juanis Rodriguez RN) History of Uterine Anomaly/JUSTO: No (01/13/2017 16:36:Juanis Rodriguez RN) History of Infertility: No (01/13/2017 16:36:Juanis Rodriguez RN) History of ART Treatment: No (01/13/2017 16:36:Juanis Rodriguez RN) History of JUSTO: No (01/13/2017 16:36:Juanis Rodriguez RN) Comments Obstetrical History: G1: current (01/13/2017 16:36:Juanis Rodriguez RN) MEDICAL HISTORY Med Hx Diabetes: No (01/13/2017 16:36:Juanis Rodriguez RN) Med Hx Hypertension: No (01/13/2017 16:36:Juanis Rodriguez RN) Med Hx Heart Disease: No (01/13/2017 16:36:Juanis Rodriguez RN) Med Hx Autoimmune Disorder: No (01/13/2017 16:36:Juanis Rodriguez RN) Med Hx Kidney Disease/UTI: No (01/13/2017 16:36:Juanis Rodriguez RN) Med Hx Neurologic/Epilepsy: No (01/13/2017 16:36:Juanis Rodriguez RN) Med Hx Psychiatric Disorders: No (01/13/2017 16:36:Juanis Rodriguez RN) Med Hx Hepatitis/Liver Disease: No (01/13/2017 16:36:Juanis Rodriguez RN) Med Hx Varicosities/Phlebitis: No (01/13/2017 16:36:Juanis Rodriguez RN) Med Hx Thyroid Dysfunction: No (01/13/2017 16:36:Juanis Rodriguez RN) Med Hx Trauma/Violence: No (01/13/2017 16:36:Juanis Rodriguez RN) Med Hx Blood Transfusion: No (01/13/2017 16:36:Juanis Rodriguez RN) Med Hx Pulmonary (Asthma,TB): No (01/13/2017 16:36:Juanis Rodriguez RN) Med Hx Breast: No (01/13/2017 16:36:Juanis Rodriguez RN) Med Hx TELEMARKETING REPRESENTATIVE Surgery: No (01/13/2017 16:36:Juanis Rodriguez RN) Med Hx Hospitalization/Surgery: Yes (01/13/2017 16:36:Juanis Rodriguez RN) Med Hx Anesthetic Complications: No (01/13/2017 16:36:Juanis Rodriguez RN) Med Hx Abnormal Pap Smear: No (01/13/2017 16:36:Juanis Rodriguez RN) Other Medical Diseases: No (01/13/2017 16:36:Juanis Rodriguez RN) Med Hx Significant Family Hx: No (01/13/2017 16:36:Juanis Rodriguez RN) Details of Med/Surg Hx: eye surgery during childhood, smoker, broken ankle 12/2015 (01/13/2017 16:36:Juanis Rodriguez RN) INFECTIOUS HISTORY Inf Hx Gonorrhea: No (01/13/2017 16:36:Juanis Rodriguez RN) Inf Hx Chlamydia: No (01/13/2017 16:36:Juanis Rodriguez RN) Inf Hx Syphilis: No (01/13/2017 16:36:Juanis Rodriguez RN) Inf Hx HIV/AIDS: No (01/13/2017 16:36:Juanis Rodriguez RN) Inf Hx Human Papilloma Virus: No (01/13/2017 16:36:Juanis Rodriguez RN) Inf Hx Pt/Partner Genital Herpes: No (01/13/2017 16:36:Juanis Rodriguez RN) Inf Hx Tuberculosis/Exposure: No (01/13/2017 16:36:Juanis Rodriguez RN) Inf Hx Hepatitis B,C: No (01/13/2017 16:36:Juanis Rodriguez RN) Inf Hx Rash or Viral Illness: No (01/13/2017 16:36:Juanis Rodriguez RN) GENETIC HISTORY Gen Hx Age >=35 at [place]: No (01/13/2017 16:36:Juanis Rodriguez RN) Gen Hx Thalassemia: No (01/13/2017 16:36:Juanis Rodriguez RN) Gen Hx Congenital Heart Defect: No (01/13/2017 16:36:Juanis Rodriguez RN) Gen Hx Neural Tube Defect: No (01/13/2017 16:36:Juanis Rodriguez RN) Gen Hx Down's Syndrome: No (01/13/2017 16:36:Juanis Rodriguez RN) Gen Hx Delgado-Sachs: No (01/13/2017 16:36:Juanis Rodriguez RN) Gen Hx Pillo: No (01/13/2017 16:36:Juanis Rodriguez RN) Gen Hx Familial Dysautonomia: No (01/13/2017 16:36:Juanis Rodriguez RN) Gen Hx Sickle Cell Disease/Trait: No (01/13/2017 16:36:Juanis Rodriguez RN) Gen Hx Hemophilia/Blood Disorder: No (01/13/2017 16:36:Juanis Rodriguez RN) Gen Hx Muscular Dystrophy: No (01/13/2017 16:36:Juanis Rodriguez RN) Gen Hx Cystic Fibrosis: No (01/13/2017 16:36:Juanis Rodriguez RN) Gen Hx Huntingtons Chorea: No (01/13/2017 16:36:Juanis Rodriguez RN) Gen Hx Mental Retardation/Autism: No (01/13/2017 16:36:Juanis Rodriguez RN) Gen Hx Tested for Fragile X: No (01/13/2017 16:36:Juanis Rodriguez RN) Gen Hx Other Inher/Chromosomal: No (01/13/2017 16:36:Juanis Rodriguez RN) Gen Hx Maternal Metabolic DO: No (01/13/2017 16:36:Juanis Rodriguez RN) Gen Hx Pt Father or FOB Defect: No (01/13/2017 16:36:Juanis Rodriguez RN) Gen Hx Other Genetic History: No (01/13/2017 16:36:Juanis Rodriguez RN) Gen Hx Drugs/Meds since LMP: Yes (01/13/2017 16:36:Juanis Rodriguez RN) Gen Hx Medications: PNV (01/13/2017 16:36:Juanis Rodriguez RN)
--- NOTE | 2017-01-24 06:15 | L&D Care Plan ---
LD CARE PLANS Datetime Report Generated by CPN: 01/24/2017 06:15 Datetime: 01/22/2017 14:14 State: Risk For (Beatrice Simons RN) Related To: Labor and Delivery Process; Surgical Procedure; Complication(s) of ; Disease Process; Treatment and Procedures (Beatrice Simons RN) Goal(s): Patients Pain will be Assessed and Managed; Patient will Verbalize Adequate Relief of Pain or the Ability to [place] with Current Pain (Beatrice Simons RN) Interventions: Assess Pain Severity on Scale of 0 (None) to 5 (Severe); Assess Type, Location and Intensity of Pain Each Time Client Reports Discomfort and Notify Provider if Unusal Pain Develops; Encourage Proper Breathing and Relaxation Techniques; Offer Alternatives Such as Repositioning, Calm Environment, Massages, Diversional Activities, Ice Pack, Splinting, and Ambulation; Administer Analgesics as Ordered; Assist with Epidural Placement as Appropriate; Evaluate Therapeutic Effectiveness of Medication and Treatments (Beatrice Simons RN) Outcome: Patient will Report Absence or Relief of Pain Consistent with Established Pain Goal (Beatrice Simons RN) Status: Ongoing (Beatrice Simons RN) Outcome: Patient will have a Decrease in Signs and Symptoms of Discomfort (Beatrice Simons RN) Status: Ongoing (Beatrice Simons RN) Outcome: Pain will be Controlled During Procedures (Beatrice Simons RN) State: Risk For (Beatrice Simons RN) Related To: Labor and Delivery Process; Surgical Procedure; Perceived or Actual Threat to ; Fear of Unknown; Situational Crisis; Medical Interventions (Beatrice Simons RN) Goal(s): Patient will have Decreased Anxiety and be able to Function at Acceptable Levels (Beatrice Simons RN) Interventions: Assess Verbal and Nonverbal Behavioral Indicators of Anxiety; Assist Patient to Identify and Verbalize Symptoms of Anxiety; Identify and Demonstrate Techniques to Control Anxiety; Assist Patient with Coping Mechanisms to Manage Anxiety; Provide Theraputic Touch for the Patient; Explain to Patient, Using a Calm Reassuring Approach and Nonmedical Terms, All Activities, Procedures, and Concerns; Instruct Patient and Family about Post Discharge Care, Limitations, Symptoms to Report and Resources Available (Beatrice Simons RN) Outcome: Patient will Identify, Verbalize and Demonstrate Techniques to Control Anxiety (Beatrice Simons RN) Status: Ongoing (Beatrice Simons RN) Outcome: Patient's Posture, Facial Expressions, Gestures and Activity Level will Reflect Decreased Anxiety (Beatrice Simons RN) Status: Ongoing (Beatrice Simons RN) Outcome: Patient will Verbalize a Sense of Control and/or Acceptance of the Situation (Beatrice Simons RN) Status: Ongoing (Beatrice Simons RN) Outcome: Patient will Identify and Utilize Support Person (Beatrice Simons RN) Status: Ongoing (Beatrice Simons RN) State: Risk For (Beatrice Simons RN) Related To: Labor and Delivery Process; Surgical Procedures; Treatment and Procedures; Impending Alterations in Family Dynamics; Feeding and Care; Community Resources and Available Support Mechanisms (Beatrice Simons RN) Goal(s): Patient will Accurately Verbalize Understanding of Plan of Care and Treatment; Patient and Family will Accurately Verbalize Understanding of the Disease Process (Beatrice Simons RN) Interventions: Assess Motivation and Willingness of Patient/Family to Learn; Assess Preferred Learning Mode: One to One Instruction, Reading, Videos, Group Discussion or Demonstration; Assess Barriers to Learning: Pain, Emotional State, Language Barrier, Cognitive Impairment, Visual or Hearing Deficits; Assess Patient and Family Knowledge of Disease Process, Medications and Treatment; Discuss Therapy and/or Treatment Options, Describe Rationale Behind Management, Therapy and Treatment Recommendations; Instruct Patient and Family on Signs and Symptoms to Report; Instruct Patient and Family on Medication Effects and Side Effects; Provide Appropriate and Timely Education Using Multiple Techniques; Provide Patient and Family with Support Group Information and Resources; Give Clear and Thorough Explanations and Demonstrations (Beatrice Simons RN) Outcome: Patient and Family will Verbalize Understanding of Condition, Treatment and Signs and Symptoms to Report (Beatrice Simons RN) Status: Ongoing (Beatrice Simons RN) Outcome: Patient will Identify Perceived Learning Needs and Express Motivation to Learn (Beatrice Simons RN) Status: Ongoing (Beatrice Simons RN) Outcome: Patient will Verbalize Understanding of Desired Content, and/or Performs Desired Skill Prior to Discharge (Beatrice Simons RN) Status: Ongoing (Beatrice Simons RN) State: Risk For (Beatrice Simons RN) Related To: Surgical Procedures; Prolonged Labor or Induction; Premature/Prolonged Rupture of Membranes; Invasive Procedures; Altered Tissue Integrity (Beatrice Simons RN) Goal(s): The Patient will be Free of Infection, Vital Signs Stable and Lab Work within Normal Parameters (Beatrice Simons RN) Interventions: Instruct and Reinforce Proper Handwashing, Hygiene, and Care Techniques to Patient and Family; Monitor Vital Signs; Monitor Patient for the Following Signs of Infection: Fever, Abdominal Tenderness, Unusual Discharge; Monitor Aminiotic Fluid, Urine and Lochia for Color and Odor; Observe Wounds, Incisions and Invasive Line Sites for Redness, Drainage and Edema; Assess IV Sites per Hospital Policy; Monitor Lab and Test Results and Notify Provider of Abnormal Findings; Assess Nutritional Status and Promote Good Nutrition (Beatrice Simons RN) Outcome: Patient will Remain Free of Infection (Beatrice Simons RN) Status: Ongoing (Beatrice Simons RN) Outcome: Infection will be Recognized Early to Allow for Prompt Treatment (Beatrice Simons RN) Status: Ongoing (Beatrice Simons RN) Outcome: Patient will have Vital Signs Within Expected Range (Beatrice Simons RN) Status: Ongoing (Beatrice Simons RN) State: Risk For (Beatrice Simons RN) Related To: Surgical Procedures; Prolonged Labor or Induction; Hemorrhage; Anesthesia (Beatrice Simons RN) Goal(s): Patient will Achieve and Maintain a Balanced Fluid Volume Status; Hemodynamically Stable (Beatrice Simons RN) Interventions: Monitor Vital Signs; Auscultate Breath Sounds; Monitor Patient for Skin Turgor, Mucous Membranes, Dry Skin, Weakness, Headaches and Confusion; Provide Oral Fluids as Ordered; Initiate and Maintain Intravenous Fluids as Ordered; Monitor Intake and Output as Indicated Per Patient Status; Accurately Measure Blood Loss; Monitor Lab and Test Results as Obtained and Notify Provider of Abnormal Findings; Monitor Patient's Weight (Beatrice Simons RN) Outcome: Patient will have Clear Lung Sounds (Beatrice Simons RN) Status: Ongoing (Beatrice Simons RN) Outcome: Patient will have Vital Signs within Expected Range (Beatrice Simons RN) Status: Ongoing (Beatrice Simons RN) Outcome: Urine Output will be within Expected Range (Beatrice Simons RN) Status: Ongoing (Beatrice Simons RN) Outcome: Patient will have Minimal Generalized or Upper Extremity Edema (Beatrice Simons RN) Status: Ongoing (Beatrice Simons RN) Datetime: 01/22/2017 14:13 State: Risk For (Beatrice Simons RN) Related To: Labor and Delivery Process; Surgical Procedure; Complication(s) of ; Disease Process; Treatment and Procedures (Beatrice Simons RN) Goal(s): Patients Pain will be Assessed and Managed; Patient will Verbalize Adequate Relief of Pain or the Ability to [place] with Current Pain (Beatrice Simons RN) Interventions: Assess Pain Severity on Scale of 0 (None) to 5 (Severe); Assess Type, Location and Intensity of Pain Each Time Client Reports Discomfort and Notify Provider if Unusal Pain Develops; Encourage Proper Breathing and Relaxation Techniques; Offer Alternatives Such as Repositioning, Calm Environment, Massages, Diversional Activities, Ice Pack, Splinting, and Ambulation; Administer Analgesics as Ordered; Assist with Epidural Placement as Appropriate; Evaluate Therapeutic Effectiveness of Medication and Treatments (Beatrice Simons RN) Outcome: Patient will Report Absence or Relief of Pain Consistent with Established Pain Goal (Beatrice Simons RN) Status: Ongoing (Beatrice Simons RN) Outcome: Patient will have a Decrease in Signs and Symptoms of Discomfort (Beatrice Simons RN) Status: Ongoing (Beatrice Simons RN) Outcome: Pain will be Controlled During Procedures (Beatrice Simons RN) State: Risk For (Beatrice Simons RN) Related To: Labor and Delivery Process; Surgical Procedure; Perceived or Actual Threat to ; Fear of Unknown; Situational Crisis; Medical Interventions (Beatrice Simons RN) Goal(s): Patient will have Decreased Anxiety and be able to Function at Acceptable Levels (Beatrice Simons RN) Interventions: Assess Verbal and Nonverbal Behavioral Indicators of Anxiety; Assist Patient to Identify and Verbalize Symptoms of Anxiety; Identify and Demonstrate Techniques to Control Anxiety; Assist Patient with Coping Mechanisms to Manage Anxiety; Provide Theraputic Touch for the Patient; Explain to Patient, Using a Calm Reassuring Approach and Nonmedical Terms, All Activities, Procedures, and Concerns; Instruct Patient and Family about Post Discharge Care, Limitations, Symptoms to Report and Resources Available (Beatrice Simons RN) Outcome: Patient will Identify, Verbalize and Demonstrate Techniques to Control Anxiety (Beatrice Simons RN) Status: Ongoing (Beatrice Simons RN) Outcome: Patient's Posture, Facial Expressions, Gestures and Activity Level will Reflect Decreased Anxiety (Beatrice Simons RN) Status: Ongoing (Beatrice Simons RN) Outcome: Patient will Verbalize a Sense of Control and/or Acceptance of the Situation (Beatrice Simons RN) Status: Ongoing (Beatrice Simons RN) Outcome: Patient will Identify and Utilize Support Person (Beatrice Simons RN) Status: Ongoing (Beatrice Simons RN) State: Risk For (Beatrice Simons RN) Related To: Labor and Delivery Process; Surgical Procedures; Treatment and Procedures; Impending Alterations in Family Dynamics; Feeding and Care; Community Resources and Available Support Mechanisms (Beatrice Simons RN) Goal(s): Patient will Accurately Verbalize Understanding of Plan of Care and Treatment; Patient and Family will Accurately Verbalize Understanding of the Disease Process (Beatrice Simons RN) Interventions: Assess Motivation and Willingness of Patient/Family to Learn; Assess Preferred Learning Mode: One to One Instruction, Reading, Videos, Group Discussion or Demonstration; Assess Barriers to Learning: Pain, Emotional State, Language Barrier, Cognitive Impairment, Visual or Hearing Deficits; Assess Patient and Family Knowledge of Disease Process, Medications and Treatment; Discuss Therapy and/or Treatment Options, Describe Rationale Behind Management, Therapy and Treatment Recommendations; Instruct Patient and Family on Signs and Symptoms to Report; Instruct Patient and Family on Medication Effects and Side Effects; Provide Appropriate and Timely Education Using Multiple Techniques; Provide Patient and Family with Support Group Information and Resources; Give Clear and Thorough Explanations and Demonstrations (Beatrice Simons RN) Outcome: Patient and Family will Verbalize Understanding of Condition, Treatment and Signs and Symptoms to Report (Beatrice Simons RN) Status: Ongoing (Beatrice Simons RN) Outcome: Patient will Identify Perceived Learning Needs and Express Motivation to Learn (Beatrice Simons RN) Status: Ongoing (Beatrice Simons RN) Outcome: Patient will Verbalize Understanding of Desired Content, and/or Performs Desired Skill Prior to Discharge (Beatrice Simons RN) Status: Ongoing (Beatrice Simons RN) State: Risk For (Beatrice Simons RN) Related To: Surgical Procedures; Prolonged Labor or Induction; Premature/Prolonged Rupture of Membranes; Invasive Procedures; Altered Tissue Integrity (Beatrice Simons RN) Goal(s): The Patient will be Free of Infection, Vital Signs Stable and Lab Work within Normal Parameters (Beatrice Simons RN) Interventions: Instruct and Reinforce Proper Handwashing, Hygiene, and Care Techniques to Patient and Family; Monitor Vital Signs; Monitor Patient for the Following Signs of Infection: Fever, Abdominal Tenderness, Unusual Discharge; Monitor Aminiotic Fluid, Urine and Lochia for Color and Odor; Observe Wounds, Incisions and Invasive Line Sites for Redness, Drainage and Edema; Assess IV Sites per Hospital Policy; Monitor Lab and Test Results and Notify Provider of Abnormal Findings; Assess Nutritional Status and Promote Good Nutrition (Beatrice Simons RN) Outcome: Patient will Remain Free of Infection (Beatrice Simons RN) Status: Ongoing (Beatrice Simons RN) Outcome: Infection will be Recognized Early to Allow for Prompt Treatment (Beatrice Simons RN) Status: Ongoing (Beatrice Simons RN) Outcome: Patient will have Vital Signs Within Expected Range (Beatrice Simons RN) Status: Ongoing (Beatrice Simons RN) State: Risk For (Beatrice Simons RN) Related To: Surgical Procedures; Prolonged Labor or Induction; Hemorrhage; Anesthesia (Beatrice Simons RN) Goal(s): Patient will Achieve and Maintain a Balanced Fluid Volume Status; Hemodynamically Stable (Beatrice Simons RN) Interventions: Monitor Vital Signs; Auscultate Breath Sounds; Monitor Patient for Skin Turgor, Mucous Membranes, Dry Skin, Weakness, Headaches and Confusion; Provide Oral Fluids as Ordered; Initiate and Maintain Intravenous Fluids as Ordered; Monitor Intake and Output as Indicated Per Patient Status; Accurately Measure Blood Loss; Monitor Lab and Test Results as Obtained and Notify Provider of Abnormal Findings; Monitor Patient's Weight (Beatrice Simons RN) Outcome: Patient will have Clear Lung Sounds (Beatrice Simons RN) Status: Ongoing (Beatrice Simons RN) Outcome: Patient will have Vital Signs within Expected Range (Beatrice Simons RN) Status: Ongoing (Beatrice Simons RN) Outcome: Urine Output will be within Expected Range (Beatrice Simons RN) Status: Ongoing (Beatrice Simons RN) Outcome: Patient will have Minimal Generalized or Upper Extremity Edema (Beatrice Simons RN) Status: Ongoing (Beatrice Simons RN)
[2017-01-24 08:16] VITALS: BP 97/46
[2017-01-24] MEDS: SENNOSIDES/DOCUSATE 8.6-50 MG 1 EACH TABLET PO SCH (09:52)
[2017-01-24] MEDS: PRENATAL VITAMIN W-O CA NO5/FE FUMARATE/FA CAPSULE PO SCH (09:52)
[2017-01-24] MEDS: FERROUS SULFATE 325 MG TABLET PO SCH (09:52)
[2017-01-24] MEDS: DOCUSATE SODIUM 100 MG CAPSULE PO SCH (09:52)
[2017-01-24 10:59] LABS: ABSOLUTE BASOPHILS # (AUTO) 0.1 10^3/uL (0.0-0.2); ABSOLUTE EOSINOPHILS # (AUTO) 0.1 10^3/uL (0.0-0.6); ABSOLUTE LYMPHOCYTES (AUTO) 2.2 10^3/uL (0.5-4.7); ABSOLUTE MONOCYTES (AUTO) 0.7 10^3/uL (0.1-1.4); ABSOLUTE NEUT (AUTO) 8.9 10^3/uL (1.7-8.2); BASOPHILS % (AUTO) 0.5 % (0-2); HEMATOCRIT 28.2 % (36.0-47.0); HEMOGLOBIN 9.4 g/dL (12.0-15.5); LYMPHOCYTES % (AUTO) 18.3 % (13-45); MEAN CORPUSCULAR HEMOGLOBIN 29.3 pg (27.0-33.4); MEAN CORPUSCULAR HGB CONC 33.2 g/dL (32.0-36.0); MEAN CORPUSCULAR VOLUME 88 fl (80-97); MONOCYTES % (AUTO) 5.6 % (3-13); RED BLOOD COUNT 3.19 10^6/uL (3.72-5.28); RED CELL DISTRIBUTION WIDTH 13.3 % (11.5-14.0); SEGMENTED NEUTROPHILS % (AUTO) 74.6 % (42-78); WHITE BLOOD COUNT 11.9 10^3/uL (4.0-10.5)
--- NOTE | 2017-01-24 11:11 | Delivery Summary ---
Del Sum A-C Datetime Report Generated by CPN: 01/24/2017 11:11 ADMISSION DATA Chief Complaint: Uterine Contractions Indication for Induction: Post Dates; Other Indication for Induction Comment: BPP 2/8 Admission Impression: Postterm, Intrauterine ; Active Labor; Intact Membranes DELIVERY PERSONNEL Delivery Doctor:: Jeremy Hernandez, DO Labor and Delivery Nurse:: Fior Wright RN Labor and Delivery Nurse:: Dolores Sinha RN Shade Bander:: Princess Bustamante RN Sales Development Executive/GLOBAL LOGISTICS ANALYST: Rafael Ertel, GLOBAL LOGISTICS ANALYST MATERNAL INFORMATION Delivery Anesthesia: Epidural Medications After Delivery: Pitocin Drip 20 Units/1000ml NSS Meds After Delivery Comment: Pitocin 20 units/1000 ml bolus following placenta Estimated Blood Loss (ml): 250 Provider Comments: of viable male in OA position Placenta delievered spontaneous and intact with 3v cord Fundus Firm LABOR SUMMARY EDC: 01/21/2017 00:00 No. Babies in Womb: 1 Attempted: No Labor Anesthesia: Epidural LABOR INFORMATION Reason for Induction: Other Reason for Induction- Other: BPP 2/8 Onset of Labor: 01/22/2017 17:36 Oxytocin: Induction Group B Beta Strep: negative Antibiotics # of Doses: 0 Antibiotics Time of Last Dose: n/a Steroids Given: None Reason Steroids Not Administered: Not Applicable MEMBRANES Membranes Rupture Method: Artificial Rupture of Membranes: 01/22/2017 18:54 Length of Rupture (hr): 0.90 Amniotic Fluid Color: Light Meconium Amniotic Fluid Amount: Moderate Amniotic Fluid Odor: Normal STAGES OF LABOR Stage 3 hr: 0 Stage 3 min: 2 Total Time in Labor hr: 2 Total Time in Labor min: 14 VAGINAL DELIVERY Episiotomy: None Laceration Extension: Second Degree Laceration Type: Periurethral Laceration Repair: Yes Laceration Repair Note: Repaired with 3-0 chromic in usual fashion with good hemostasis Sponge Count Correct: Yes Sharps Count Correct: Yes BABY A INFORMATION Infant Delivery Date/Time: 01/22/2017 19:48 Method of Delivery: Vaginal Born in Route : No : N/A Forceps: N/A Vacuum Extraction: N/A Shoulder Dystocia : No PRESENTATION/POSITION BABY A Presentation: Cephalic Cephalic Presentation: Vertex Vertex Position: OA Breech Presentation: N/A PLACENTA INFORMATION BABY A Placenta Delivery Time : 01/22/2017 19:50 Placenta Method of Delivery: Spontaneous Placenta Status: Delivered SCORES BABY A Heart Rate 1 min: >100 bpm Resp Effort 1 min: Slow, Irregular Reflex Irritability 1 min: Cough or Sneeze or Pulls Away Muscle Tone 1 min: Active Motion Color 1 min: Blue/Pale SCORE 1 MIN: 7 Heart Rate 5 min: >100 bpm Resp Effort 5 min: Good Cry Reflex Irritability 5 min: Cough or Sneeze or Pulls Away Muscle Tone 5 min: Active Motion Color 5 min: Body [place], Extremities Blue SCORE 5 MIN: 9 INFORMATION BABY A Gestational Age at Delivery: 40.1 Gestational Status: Full Term- 39- 40.6 Weeks Outcome : Liveborn Infant Condition : Stable Sex: Male IDENTIFICATION BABY A ID Band Number: [id number] Mother's Name Verified: Yes Infant RN Verifying : Liya Wright, RN Additional Verifying Personnel: Betsy Lockco, RN WEIGHT/LENGTH BABY A Infant Birthweight (gm): 3390 Infant Weight (lb): 7 Infant Weight (oz): 8 Infant Length (in): 20.50 Length (cm): 52.07 CORD INFORMATION BABY A No. Cord Vessels: 3 Nuchal Cord : N/A Cord Blood Taken: Yes-For Storage (Mom's Blood type +) Suction: Mouth; Nose ASSESSMENT BABY A Infant Complications: Meconium Skin to Skin: Yes BABY B INFORMATION : N/A SIGNATURES Signature: with User ID: [email or web address]
--- NOTE | 2017-01-24 11:27 | PDOC DISCHARGE SUMMARY ---
Final Diagnosis Discharge Date: 01/24/17 - Final Diagnosis (1) Vaginal delivery Is this a current diagnosis for this admission?: Yes Discharge Data - Discharge Medication Home Medications: No Home Medications 01/22/17 Reason(s) for Admission: Onset of Labor Procedures: NST Intrapartum Procedure(s): Spontaneous Vaginal Delivery Complication(s): Laceration-Periurethral Laceration-Degree: 1st - Diagnosis Test Laboratory: Temp Pulse Resp BP Pulse Ox 97.9 F 69 16 97/46 L 99 01/24/17 08:49 01/24/17 08:49 01/24/17 08:49 01/24/17 07:47 01/24/17 08:49 01/22/17 01/22/17 01/23/17 09:52 14:40 07:00 RBC 3.64 L 3.07 L Hgb 10.8 L 9.0 L Hct 31.8 L 26.9 L Urine Opiates Screen NEGATIVE 01/24/17 10:36 RBC 3.19 L Hgb 9.4 L Hct 28.2 L Urine Opiates Screen - Discharge information/Instructions Discharge Activity: Activity As Tolerated, No Lifting Over 10 Pounds, Pelvic Rest, No tub bath Discharge Diet: Regular Disposition: HOME, SELF-CARE Follow up with: [facility] in: 4, Weeks
--- NOTE | 2017-01-25 06:01 | L&D General Admission ---
General Admit Datetime Report Generated by CPN: 01/25/2017 06:00 INFORMATION Patient Age: 26 (01/06/2017 08:53:QS system process) EDC: 01/21/2017 00:00 (01/13/2017 16:36:Juanis Rodriguez RN) : 1 (01/13/2017 16:36:Juanis Rodriguez RN) Para: 0 (01/13/2017 16:36:Juanis Rodriguez RN) Term: 0 (01/13/2017 16:36:Juanis Rodriguez RN) : 0 (01/13/2017 16:36:Juanis Rodriguez RN) Spontaneous Abortions: 0 (01/13/2017 16:36:Juanis Rodriguez RN) Induced Abortions: 0 (01/13/2017 16:36:Juanis Rodriguez RN) Livin (01/13/2017 16:36:Juanis Rodriguez RN) Cesareans: 0 (01/13/2017 16:36:Juanis Rodriguez RN) VBACs: 0 (01/13/2017 16:36:Juanis Rodriguez RN) Ectopic: 0 (01/13/2017 16:36:Juanis Rodriguez RN) Multiple Births: 0 (01/13/2017 16:36:Juanis Rodriguez RN) Baby, Number in Womb: 1 (01/13/2017 16:36:VINH Terrazas) CARE Primary Photography Assistant: [employer] (01/13/2017 16:36:VINH Pak) Month of 1st Visit: July (01/13/2017 16:36:Juanis Rodriguez RN) Adequate Care: Yes (01/13/2017 16:36:Juanis Rodriguez RN) Prepregnancy Weight (lb): 132 (01/13/2017 16:36:Juanis Rodriguez RN) Prepregnancy Weight (kg): 60.0 (01/13/2017 16:36:QS system process) Height (in): 66 (01/24/2017 11:27:QS system process) ALLERGIES Medication Allergy: No (01/13/2017 16:36:Juanis Rodriguez RN) Medication Allergies: No Known Allergies (01/21/2017) (01/21/2017 16:54:QS system process) Latex Allergy: No Latex Allergies (01/13/2017 16:36:Juanis Rodriguez RN) Food Allergies: n/a (01/13/2017 16:36:Princess Bustamante RN) Environmental Allergies: n/a (01/13/2017 16:36:Princess Bustamante RN) COMMUNICATION Primary Language: Kuwaiti (01/13/2017 16:36:Juanis Rodriguez RN) Medical Tx Preferred Language: Kuwaiti (01/13/2017 16:36:Juanis Rodriguez RN) Communication Barrier(s): None (Annotations: Data stored by N on behalf of user) (01/13/2017 16:36:Princess Bustamante RN) DEMOGRAPHICS Address: [place] [address] (01/06/2017 08:53:QS system process) Zipcode: [address] (01/06/2017 08:53:QS system process) County: [place] (01/13/2017 16:36:Princess Bustamante RN) Home (01/06/2017 08:53:QS system process) Work (01/13/2017 16:14:QS system process) SSN: [id number] (01/06/2017 08:53:QS system process) Next of Kin Name: AARON ORTEGA (01/06/2017 08:53:QS system process) Next of Kin (01/06/2017 08:53:QS system process) Next of Kin Relationship: OR (01/06/2017 08:53:QS system process) Date of : 1990 (01/06/2017 08:53:QS system process) Marital Status: Single (01/06/2017 08:53:QS system process) Sex: Female (01/06/2017 08:53:QS system process) Occupation: Other (01/13/2017 16:36:Princess Bustamante RN) Occupation- Other : [employer] (01/13/2017 16:36:Princess Bustamante RN) Race: (01/06/2017 08:53:QS system process) Ethnicity: Non- or (01/06/2017 08:53:QS system process) Anabaptism: None (01/06/2017 08:53:QS system process) FOB Involved: Yes (01/13/2017 16:36:Princess Bustamante RN) Father of Baby Name: Tony (01/13/2017 16:36:Princess Bustamante RN) DRUG AND ALCOHOL USE Alcohol: No (01/13/2017 16:36:Juanis Rodriguez RN) Cigarettes: Former Smoker. [id number] (01/13/2017 16:36:Princess Bustamante RN) Average Cigarettes Smoked: < 5 per day (01/13/2017 16:36:Juanis Rodriguez RN) Advised to Stop Smoking: Yes (01/13/2017 16:36:Juanis Rodriguez RN) Cigarette Comments: pt states that she stopped smoking recently (01/13/2017 16:36:Princess Bustamante RN) Marijuana: No (01/13/2017 16:36:Juanis Rodriguez RN) Cocaine: No (01/13/2017 16:36:Juanis Rodriguez RN) Other Illicit Drugs: No (01/13/2017 16:36:Juanis Rodriguez RN) VACCINE HISTORY Influenza Vaccine: No (01/13/2017 16:36:Juanis Rodriguez RN) Pneumococcal Vaccine: No (01/13/2017 16:36:Juanis Rodriguez RN) Tetanus Vaccine: No (01/13/2017 16:36:Juanis Rodriguez RN) Tdap Vaccine: No (01/13/2017 16:36:Juanis Rodriguez RN) Hepatitis B Vaccine: No (01/13/2017 16:36:Juanis Rodriguez RN) Feeding Preference: Breast (01/13/2017 16:36:Juanis Rodriguez RN) Benefit of Breast Feed Discussed: Yes (01/13/2017 16:36:Juanis Rodriguez RN) Circumcision: Yes (01/13/2017 16:36:Juanis Rodriguez RN) Classes Attended: No (01/13/2017 16:36:Juanis Rodriguez RN) Tubal Ligation: No (01/13/2017 16:36:Juanis Rodriguez RN) Tubal Authorization Signed: N/A (01/13/2017 16:36:Juanis Rodriguez RN) Consent: N/A (01/13/2017 16:36:Juanis Rodriguez RN) Consent Signed: N/A (01/13/2017 16:36:Juanis Rodriguez RN) Pain Management Plans: Epidural (01/13/2017 16:36:Juanis Rdoriguez RN) Plans for Labor and Delivery: None (01/13/2017 16:36:Juanis Rodriguez RN) Support Person: Aaron Ortega (01/13/2017 16:36:Juanis Rodriguez RN) Support Person Relationship: Other (01/13/2017 16:36:Juanis Rodriguez RN) Other Relationship: pastors (01/13/2017 16:36:Juanis Rodriguez RN) Cultural/Spritual Practice: No (01/13/2017 16:36:Juanis Rodriguez RN) Spir/Cult Dietary Needs: No (01/13/2017 16:36:Juanis Rodriguez RN) LIVING SITUATION/DISCHARGE PLAN Living Arrangements: Apartment (01/13/2017 16:36:Juanis Rodriguez RN) Adequate Access to:: Electric; Heat; Refrigeration; Plumbing/Running water; Phone; Transportation (01/13/2017 16:36:Juanis Rodriguez RN) WIC Program: Yes (01/13/2017 16:36:Juanis Rodriguez RN) Discharge Buck Presser Person: Rosalind Irving - friend (01/13/2017 16:36:Juanis Rodriguez RN) Person to Help after Discharge: Rosalind Irving - friend (01/13/2017 16:36:Juansi Rodriguez RN) Currently Using Commun Resources: No (01/13/2017 16:36:Juanis Rodriguez RN) Outside Agency/Financial Foundations Representative: No (01/13/2017 16:36:Juanis Rodriguez RN) Car Seat for Discharge: Yes (01/13/2017 16:36:Juanis Rodriguez RN) Adoption Requested: No (01/13/2017 16:36:Juanis Rodriguez RN) Pt Contact w/ Post : N/A (01/13/2017 16:36:Juanis Rodriguez RN) LABS Blood Type: A Positive (01/13/2017 16:36:Juanis Rodriguez RN) Antibody Screen: negative (01/13/2017 16:36:Juanis Rodriguez RN) Rho(G) this : Not Applicable (01/13/2017 16:36:Princess Bustamante RN) Hemoglobin: 9.4 L (01/24/2017 10:36:QS system process) Hematocrit: 28.2 L (01/24/2017 10:36:QS system process) MCV: 88 (01/24/2017 10:36:QS system process) Group Beta Strep: negative (01/13/2017 16:36:Juanis Rodriguez RN) Gonorrhea: Negative (01/13/2017 16:36:Juanis Rodriguez RN) Chlamydia: Negative (01/13/2017 16:36:Juanis Rodriguez RN) RPR/VDRL: Nonreactive (01/13/2017 16:36:Juanis Rodriguez RN) Hepatitis B: Negative (01/13/2017 16:36:Juanis Rodriguez RN) Rubella: Immune (01/13/2017 16:36:Juanis Rodriguez RN) Varicella: Non Susceptible (01/13/2017 16:36:Juanis Rodriguez RN) OB/PREVIOUS HISTORY Current Procedures: Ultrasound; NST (01/13/2017 16:36:Juanis Rodriguez RN) History of Previous : No (01/13/2017 16:36:Juanis Rodriguez RN) History of Gestational Diabetes: No (01/13/2017 16:36:Juanis Rodriguez RN) History of PIH: No (01/13/2017 16:36:Juanis Rodriguez RN) History of Incompetent Cervix: No (01/13/2017 16:36:Juanis Rodriguez RN) History of Placenta Previa/Abrup: No (01/13/2017 16:36:Juanis Rodriguez RN) History of Macrosomia: No (01/13/2017 16:36:Juanis Rodriguez RN) History of IUGR: No (01/13/2017 16:36:Juanis Rodriguez RN) History of Hemorrhage: No (01/13/2017 16:36:Juanis Rodriguez RN) History of Loss/Stillborn: No (01/13/2017 16:36:Juanis Rodriguez RN) History of : No (01/13/2017 16:36:Juanis Rodriguez RN) History of D (Rh) Sensitization: No (01/13/2017 16:36:Juanis Rodriguez RN) History Recurrent Loss/Stillborn: No (01/13/2017 16:36:Juanis Rodriguez RN) History Depression/PP Depression: No (01/13/2017 16:36:Juanis Rodriguez RN) History of Uterine Anomaly/JUSTO: No (01/13/2017 16:36:Juanis Rodriguez RN) History of Infertility: No (01/13/2017 16:36:Juanis Rodriguez RN) History of ART Treatment: No (01/13/2017 16:36:Juanis Rodriguez RN) History of JUSTO: No (01/13/2017 16:36:Juanis Rodriguez RN) Comments Obstetrical History: G1: current (01/13/2017 16:36:Juanis Rodriguez RN) MEDICAL HISTORY Med Hx Diabetes: No (01/13/2017 16:36:Juanis Rodriguez RN) Med Hx Hypertension: No (01/13/2017 16:36:Juanis Rodriguez RN) Med Hx Heart Disease: No (01/13/2017 16:36:Juanis Rodriguez RN) Med Hx Autoimmune Disorder: No (01/13/2017 16:36:Juanis Rodriguez RN) Med Hx Kidney Disease/UTI: No (01/13/2017 16:36:Juanis Rodriguez RN) Med Hx Neurologic/Epilepsy: No (01/13/2017 16:36:Juanis Rodriguez RN) Med Hx Psychiatric Disorders: No (01/13/2017 16:36:Juanis Rodriguez RN) Med Hx Hepatitis/Liver Disease: No (01/13/2017 16:36:Juanis Rodriguez RN) Med Hx Varicosities/Phlebitis: No (01/13/2017 16:36:Juanis Rodriguez RN) Med Hx Thyroid Dysfunction: No (01/13/2017 16:36:Juanis Rodriguez RN) Med Hx Trauma/Violence: No (01/13/2017 16:36:Juanis Rodriguez RN) Med Hx Blood Transfusion: No (01/13/2017 16:36:Juanis Rodriguez RN) Med Hx Pulmonary (Asthma,TB): No (01/13/2017 16:36:Juanis Rodriguez RN) Med Hx Breast: No (01/13/2017 16:36:Juanis Rodriguez RN) Med Hx FARM BUTCHER Surgery: No (01/13/2017 16:36:Juanis Rodriguez RN) Med Hx Hospitalization/Surgery: Yes (01/13/2017 16:36:Juanis Rodriguez RN) Med Hx Anesthetic Complications: No (01/13/2017 16:36:Juanis Rodriguez RN) Med Hx Abnormal Pap Smear: No (01/13/2017 16:36:Juanis Rodriguez RN) Other Medical Diseases: No (01/13/2017 16:36:Juanis Rodriguez RN) Med Hx Significant Family Hx: No (01/13/2017 16:36:Juanis Rodriguez RN) Details of Med/Surg Hx: eye surgery during childhood, smoker, broken ankle 12/2015 (01/13/2017 16:36:Juanis Rodriguez RN) INFECTIOUS HISTORY Inf Hx Gonorrhea: No (01/13/2017 16:36:Juanis Rodriguez RN) Inf Hx Chlamydia: No (01/13/2017 16:36:Juanis Rodriguez RN) Inf Hx Syphilis: No (01/13/2017 16:36:Juanis Rodriguez RN) Inf Hx HIV/AIDS: No (01/13/2017 16:36:Juanis Rodriguez RN) Inf Hx Human Papilloma Virus: No (01/13/2017 16:36:Juanis Rodriguez RN) Inf Hx Pt/Partner Genital Herpes: No (01/13/2017 16:36:Juanis Rodriguez RN) Inf Hx Tuberculosis/Exposure: No (01/13/2017 16:36:Juanis Rodriguez RN) Inf Hx Hepatitis B,C: No (01/13/2017 16:36:Juanis Rodriguez RN) Inf Hx Rash or Viral Illness: No (01/13/2017 16:36:Juanis Rodriguez RN) GENETIC HISTORY Gen Hx Age >=35 at [place]ANG[facility]: No (01/13/2017 16:36:Juanis Rodriguez RN) Gen Hx Thalassemia: No (01/13/2017 16:36:Juanis Rodriguez RN) Gen Hx Congenital Heart Defect: No (01/13/2017 16:36:Juanis Rodriguez RN) Gen Hx Neural Tube Defect: No (01/13/2017 16:36:Juanis Rodriguez RN) Gen Hx Down's Syndrome: No (01/13/2017 16:36:Juanis Rodriguez RN) Gen Hx Delgado-Sachs: No (01/13/2017 16:36:Juanis Rodriguez RN) Gen Hx Pillo: No (01/13/2017 16:36:Juanis Rodriguez RN) Gen Hx Familial Dysautonomia: No (01/13/2017 16:36:Juanis Rodriguez RN) Gen Hx Sickle Cell Disease/Trait: No (01/13/2017 16:36:Juanis Rodriguez RN) Gen Hx Hemophilia/Blood Disorder: No (01/13/2017 16:36:Juanis Rodriguez RN) Gen Hx Muscular Dystrophy: No (01/13/2017 16:36:Juanis Rodriguez RN) Gen Hx Cystic Fibrosis: No (01/13/2017 16:36:Juanis Rodriguez RN) Gen Hx Huntingtons Chorea: No (01/13/2017 16:36:Juanis Rodriguez RN) Gen Hx Mental Retardation/Autism: No (01/13/2017 16:36:Juanis Rodriguez RN) Gen Hx Tested for Fragile X: No (01/13/2017 16:36:Juanis Rodriguez RN) Gen Hx Other Inher/Chromosomal: No (01/13/2017 16:36:Juanis Rodriguez RN) Gen Hx Maternal Metabolic DO: No (01/13/2017 16:36:Juanis Rodriguez RN) Gen Hx Pt Father or FOB Defect: No (01/13/2017 16:36:Juanis Rodriguez RN) Gen Hx Other Genetic History: No (01/13/2017 16:36:Juanis Rodriguez RN) Gen Hx Drugs/Meds since LMP: Yes (01/13/2017 16:36:Juanis Rodriguez RN) Gen Hx Medications: PNV (01/13/2017 16:36:Juanis Rodriguez RN)
--- NOTE | 2017-01-25 06:01 | L&D Current Admission ---
Current Admit Datetime Report Generated by CPN: 01/25/2017 06:00 ADMISSION INFORMATION Current Admit Date/Time: 01/22/2017 14:00 (01/22/2017 14:12:Princess Bustamante RN) Reason for Admission: Induction of Labor; Other (01/22/2017 14:12:Princess Bustamante RN) Other Reason for Admission: Pre-Eclampsia Workup (01/13/2017 16:46:Jeffry Coombs RN) Chief Complaint: Uterine Cramping (01/22/2017 14:12:Princess Bustamante RN) Medications During : Vitamin (01/22/2017 14:12:Princess Bustamante RN) EGA per Dates: 40.1 (01/22/2017 14:12:QS system process) Method of Arrival: Wheelchair (01/22/2017 14:12:Princess Bustamante RN) Admitted From: Home (01/22/2017 14:12:Princess Bustamante RN) Reason for Induction: Other (01/22/2017 14:12:Princess Bustamante RN) Reason for Induction- Other: BPP 2/8 (01/22/2017 14:12:Princess Bustamante RN) Records Available: Yes (01/22/2017 14:12:Princess Bustamante RN) General Admission Information: Reviewed; Updated; Confirmed (01/22/2017 14:12:Princess Bustamante RN) General Admission Reviewed By: Marce Bustamante RN (01/22/2017 14:12:Princess Bustamante RN) BELONGINGS/ADVANCED DIRECTIVES Valuables/Personal Effects: None (01/22/2017 14:12:Princess Bustamante RN) Other Belongings: see valuables consent (01/22/2017 14:12:Princess Bustamante RN) Disposition of Belongings: Kept with Patient (01/22/2017 14:12:Princess Bustamante RN) Advance Direct for Healthcare: No, and Wants No Information (01/22/2017 14:12:Princess Bustamante RN) Durable Power of Set Up Mechanic: No (01/22/2017 14:12:Princess Bustamante RN) Living Will: No (01/22/2017 14:12:Princess Bustamante RN) Organ Donor: Yes (01/22/2017 14:12:Princess Bustamante RN) Pt Rights Information Given: Yes (01/22/2017 14:12:Princess Bustamante RN) Pt Understands Pt Rights: Yes (01/22/2017 14:12:Princess Bustamante RN) LEARNING ASSESSMENT Knowledge Level: Understands L_D Process (01/22/2017 14:12:Princess Bustamante RN) Barriers to Learning: None (01/22/2017 14:12:Princess Bustamante RN) Learning Readiness: Motivated (01/22/2017 14:12:Princess Bustamante RN) Learns Best By: 1 to 1 Instruction (01/22/2017 14:12:Princess Bustamante RN) Learning Needs: Labor and Delivery Process; Pain Management; Symptoms to Report (01/22/2017 14:12:Princess Bustamante RN) DOMESTIC VIOLANCE SCREENING Dom Viol Threatened/Hurt: No (01/22/2017 14:12:Princess Bustmaante RN) Hx of Abuse/Neglect past 2yrs: No (01/22/2017 14:12:Pirncess Bustamante RN) Feel Unsafe Going Home: No (01/22/2017 14:12:Princess Bustamante RN) Addt'l Observ Indicating Abuse: No (01/22/2017 14:12:Princess Bustamante RN) Reason Unable to Complete Screen: N/A, Screen Completed (01/22/2017 14:12:Princess Bustamante RN) Considered Personal Harm/Suicide: No (01/22/2017 14:12:Princess Baidy, RN) NUTRITIONAL/FUNCTIONAL SCREENING Problem with Appetite >5 Days: No (01/22/2017 14:12:Princess Bustamante RN) Chew/Swallow Difficulties: No (01/22/2017 14:12:Princess Bustamante RN) Inappropriate Wt Gain/Loss: No (01/22/2017 14:12:Princess Bustamante RN) Presence Skin Breakdown/Ulcer: No (01/22/2017 14:12:Princess Bustamante RN) Special Diet: No (01/22/2017 14:12:Princess Bustamante RN) Pt Requests Project Production Engineer Visit: No (01/22/2017 14:12:Princess Bustamante RN) Hx of Any of the Following?: N/A (01/22/2017 14:12:Princess Bustamante RN) New Diagnosis of: N/A (01/22/2017 14:12:Princess Bustamante RN) Requires Assist w/Ambulation: No (01/22/2017 14:12:Princess Bustamante RN) Uses Assist Device to Ambulate: No (01/22/2017 14:12:Princess Bustamante RN) Pt Requires Help w/ADL's: No (01/22/2017 14:12:Princess Bustamante RN)
== END 2017-01-24 12:30 | disposition home or self-care (01) | DRG 775 ==
LOC: LC 09:43 → LR 14:08 → 2S 21:51
PROVIDERS: ADMIT Obstetrics & Gynecology; ATTEND Obstetrics & Gynecology
PROC: 10E0XZZ Delivery of Products of Conception, External Approach (ICD-10-PCS; principal; 2017-01-22)
PROC: 0UQMXZZ Repair Vulva, External Approach (ICD-10-PCS; 2017-01-22)
PROC: 3E033VJ Introduction of Other Hormone into Peripheral Vein, Percutaneous Approach (ICD-10-PCS; 2017-01-22)
PROC: 4A1HXCZ Monitoring of Products of Conception, Cardiac Rate, External Approach (ICD-10-PCS; 2017-01-22)
PROC: 10907ZC Drainage of Amniotic Fluid, Therapeutic from Products of Conception, Via Natural or Artificial Opening (ICD-10-PCS; 2017-01-22)
PROC: 3E0234Z Introduction of Serum, Toxoid and Vaccine into Muscle, Percutaneous Approach (ICD-10-PCS; 2017-01-24)
PROC: 3E0234Z Introduction of Serum, Toxoid and Vaccine into Muscle, Percutaneous Approach (ICD-10-PCS; 2017-01-24)
DX: O48.0 Post-term pregnancy (principal); O47.1 False labor at or after 37 completed weeks of gestation; O77.0 Labor and delivery complicated by meconium in amniotic fluid; O71.82 Other specified trauma to perineum and vulva; O99.334 Smoking (tobacco) complicating childbirth; F17.210 Nicotine dependence, cigarettes, uncomplicated; Z3A.40 40 weeks gestation of pregnancy; Z37.0 Single live birth; Z23 Encounter for immunization; R51 Headache
CPT/HCPCS: 36415; 59025; 76819; 80053; 80307; 81001; 81005; 83615; 84550; 85025; 85027; 86592; 86850; 86900; 86901; 88307; 90686; 90715; 94760; J2370; J2590; J3010; J3490

== ENCOUNTER 2019-12-11 07:48 | Emergency (ER) | payer SELFPAY ==
--- NOTE | 2019-12-11 11:29 | ER Document Report ---
ED Respiratory Problem - General Chief Complaint: Cold Symptoms Stated Complaint: FLU LIKE SYMPTOMS Time Seen by Provider: 12/11/19 11:16 Notes: CHIEF COMPLAINT: Cough and congestion for 5 days HPI: 29-year-old female presenting to the emergency department complaining of cough and facial congestion over the last 5 days. Patient states "I think I have the flu". She has not had a fever. Cough is nonproductive. No shortness of breath. Has taken no medications for her symptoms. ROS: See HPI - all other systems were reviewed and are otherwise negative Constitutional: no fever Eyes: no drainage, no blurred vision ENT: Positive runny nose, no sore throat Cardiovascular: no chest pain Resp: no SOB, positive cough GI: no vomiting, no diarrhea, no abdominal pain : no dysuria Integumentary: no rash Allergy: no hives Musculoskeletal: no extremity pain or swelling Neurological: no numbness/tingling, no weakness MEDICATIONS: I agree with the patient medications as charted by the RN. ALLERGIES: I agree with the allergies as charted by the RN. PAST MEDICAL HISTORY/PAST SURGICAL HISTORY: Reviewed and agree as charted by RN. SOCIAL HISTORY: Reviewed and agree as charted by RN. FAMILY HISTORY: No significant familial comorbid conditions directly related to patient complaint EXAM: Reviewed vital signs as charted by RN. CONSTITUTIONAL: Alert and oriented and responds appropriately to questions. Well-appearing; well-nourished HEAD: Normocephalic; atraumatic EYES: PERRL; Conjunctivae clear, sclerae non-icteric ENT: normal nose; clear rhinorrhea; moist mucous membranes; pharynx without lesions noted, no uvula edema or deviation, no tonsillar hypertrophy, phonation normal. There is slight soft tissue swelling and edema around the eyes and over the face with mild tenderness over the maxillary sinuses NECK: Supple without meningismus; non-tender; no cervical lymphadenopathy, no masses CARD: RRR; no murmurs, no clicks, no rubs, no gallops; symmetric distal pulses RESP: Normal chest excursion without splinting or tachypnea; breath sounds clear and equal bilaterally; no wheezes, no rhonchi, no rales, pulse oximetry 98% on room air not hypoxic ABD/GI: Normal bowel sounds; non-distended; soft, non-tender, no rebound, no guarding; no palpable organomegaly or masses. BACK: The back appears normal and is non-tender to palpation, there is no CVA tenderness EXT: Normal ROM in all joints; non-tender to palpation; no cyanosis, no effusions, no edema SKIN: Normal color for age and race; warm; dry; good turgor; no acute lesions noted NEURO: Moves all extremities equally; Motor and sensory function intact PSYCH: The patient's mood and manner are appropriate. Grooming and personal hygiene are appropriate. MDM: 29-year-old female with what is likely a viral etiology upper respiratory infection. Will check influenza swab. Will check chest x-ray to evaluate for infiltrate. TRAVEL OUTSIDE OF THE [place] IN LAST 30 DAYS: No - Related Data Allergies/Adverse Reactions: No Known Allergies Allergy (Verified 12/11/19 08:22) Past Medical History - Social History Smoking Status: Current Every Day Smoker Family History: Reviewed & Not Pertinent Patient has suicidal ideation: No Patient has homicidal ideation: No Pulmonary Medical History: Reports: Hx Asthma Musculoskeletal Medical History: Reports Hx Musculoskeletal Trauma Traumatic Medical History: Reports: Hx Fractures - Distal tibia fracture 12/29/2015 Physical Exam - Vital signs Vitals: Temp Pulse Resp BP Pulse Ox 98.4 F 85 18 121/63 100 12/11/19 08:09 12/11/19 08:09 12/11/19 08:09 12/11/19 08:09 12/11/19 08:09 Course - Re-evaluation Re-evalutation: 12/11/19 12:32 Chest x-ray does not show evidence of pneumonia. Influenza negative likely a viral etiology will treat symptomatically - Vital Signs Vital signs: Temp Pulse Resp BP Pulse Ox 98.4 F 76 12 106/60 99 12/11/19 08:25 12/11/19 08:25 12/11/19 08:25 12/11/19 08:25 12/11/19 08:25 Discharge - Discharge Clinical Impression: Viral URI with cough Condition: Stable Disposition: HOME, SELF-CARE Additional Instructions: Medications as prescribed, influenza was negative today, chest x-ray did not show evidence of pneumonia. Follow-up with primary care for further evaluation and treatment Prescriptions: Fexofenadine/Pseudoephedrine [Miranda-D 24 Hour Tablet] 1 each PO DAILY #10 tab.er.24h Fluticasone Propionate [Flonase Nasal [place] 50 Mcg/[place] 16 gm] 2 sprays NASL Q12 #1 inhaler Referrals: WES TAPIA MD [ACTIVE STAFF] - Follow up as needed
--- NOTE | 2019-12-11 12:01 | RADIOLOGY REPORT (SQ) ---
EXAM DESCRIPTION: CHEST 2 VIEWS COMPLETED DATE/TIME: 12/11/2019 11:50 am REASON FOR STUDY: cough COMPARISON: None. TECHNIQUE: Frontal and lateral radiographic views of the chest acquired. NUMBER OF VIEWS: Two view. LIMITATIONS: None. FINDINGS: LUNGS AND PLEURA: No opacities, masses or pneumothorax. No pleural effusion. MEDIASTINUM AND HILAR STRUCTURES: No masses or contour abnormalities. HEART AND VASCULAR STRUCTURES: Heart normal size. No evidence for failure. BONES: No acute findings. HARDWARE: None in the chest. OTHER: No other significant finding. IMPRESSION: NO SIGNIFICANT RADIOGRAPHIC FINDING IN THE CHEST. TECHNICAL DOCUMENTATION: JOB ID: [id number] [employer]- All Rights Reserved Reading location - IP/workstation name: [email or web address]
[2019-12-11 12:06] LABS: A TYPE INFLUENZA AG NEGATIVE (NEGATIVE); B INFLUENZA AG NEGATIVE (NEGATIVE)
[2019-12-11 12:41] VITALS: BP 119/60
== END 2019-12-11 12:41 | disposition home or self-care (01) ==
LOC: ER 07:48
DX: J06.9 Acute upper respiratory infection, unspecified (principal); B97.89 Other viral agents as the cause of diseases classified elsewhere; R05 Cough; R09.81 Nasal congestion; R09.89 Other specified symptoms and signs involving the circulatory and respiratory systems; F17.200 Nicotine dependence, unspecified, uncomplicated; J45.909 Unspecified asthma, uncomplicated
CPT/HCPCS: 71046; 87804; 99283